=== PATIENT | female | born 1930 | race Caucasian/White ===

== ENCOUNTER 2017-03-25 11:34 | Emergency (ER) | payer MEDICARE, BC ==
[2017-03-25 11:58] VITALS: BP 161/71
--- NOTE | 2017-03-25 13:24 | UC ---
Abdominal Pain Female HPI - HPI Summary HPI Summary: Patient presents with complaints of 1-2 days of urinary urgency, frequency, and dysuria. She also reports generalized just not feeling well, and states she aches like a which. She denies any fever,chills, abdominal pain, flank pain associated with her concerns. - History of Current Complaint Hx Obtained From: Patient Onset/Duration: Gradual Onset, Lasting Days Timing: Constant Severity Initially: Mild Severity Currently: Moderate Pain Intensity: 6 Location: Suprapubic Radiates: No Character: Cramping Aggravating Factor(s): Other: - urination Alleviating Factor(s): Nothing Associated Signs and Symptoms: Positive: Urinary Symptoms - Risk Factors Ectopic Risk Factor: Negative Ovarian Torsion Risk Factor: Negative <Elidia Bowen - Last Filed: 03/25/17 13:25> <Thania Siddiqi - Last Filed: 03/25/17 13:58> - History of Current Complaint Chief Complaint: UCGU Stated Complaint: FREQUENT URINATION Time Seen by Provider: 03/25/17 13:12 Allergies/Adverse Reactions: Allergies Allergy/AdvReac Type Severity Reaction Status Date / Time MS NSAIDs [NSAIDs] Allergy Severe Bleeding Verified 03/25/17 11:54 PMH/Surg Hx/FS Hx/Imm Hx Previously Healthy: Yes Endocrine History: Dyslipidemia Cardiovascular History: Hypertension GI/ History: Gastroesophageal Reflux - Surgical History Surgical History: Yes Surgery Procedure, Year, and Place: HYSTERECTOMY,. 2 HIATAL HERNIA OPERATIONS- [facility] – [place], [place]. BLADDER SCRAPING,. laparoscopy right knee- [facility] – [place] - Family History Known Family History: Positive: Cardiac Disease - Social History Occupation: Retired Lives: With Family Alcohol Use: None Substance Use Type: None Smoking Status (MU): Former Smoker Type: Cigarettes Amount Used/How Often: 1 PACK PER WEEK Have You Smoked in the Last Year: No When Did the Patient Quit Smoking/Using Tobacco: 45 YEARS AGO - Immunization History Most Recent Influenza Vaccination: unknown Most Recent Tetanus Shot: Unknown Most Recent Pneumonia Vaccination: Never <Elidia Bowen - Last Filed: 03/25/17 13:25> Review of Systems Constitutional: Fatigue Skin: Negative Eyes: Negative ENT: Negative Respiratory: Negative Cardiovascular: Negative Gastrointestinal: Negative Genitourinary: Frequency, Urgency Motor: Negative Neurovascular: Negative Musculoskeletal: Negative Neurological: Negative Psychological: Negative Is Patient Immunocompromised?: No All Other Systems Reviewed And Are Negative: Yes <Elidia Bowen - Last Filed: 03/25/17 13:25> Physical Exam Triage Information Reviewed: Yes Appearance: Well-Appearing Vital Signs: Initial Vital Signs Temp 98 F 03/25/17 11:56 Pulse 66 03/25/17 11:56 Resp 20 03/25/17 11:56 BP 161/71 03/25/17 11:56 Pulse Ox 99 03/25/17 11:56 Vital Signs Reviewed: Yes Eye Exam: Normal ENT Exam: Normal Neck exam: Normal Neck: Positive: 1 Respiratory Exam: Normal Cardiovascular Exam: Normal Abdominal Exam: Normal Musculoskeletal Exam: Normal Neurological Exam: Normal Psychological Exam: Normal Skin Exam: Normal <Elidia Bowen - Last Filed: 03/25/17 13:25> Vital Signs: Initial Vital Signs Temp 98 F 03/25/17 11:56 Pulse 66 03/25/17 11:56 Resp 20 03/25/17 11:56 BP 161/71 03/25/17 11:56 Pulse Ox 99 03/25/17 11:56 <Thania Siddiqi - Last Filed: 03/25/17 13:58> Abd Pain Female Course/Dx - Course Course Of Treatment: UTI (simple) (revised version): This is a very pleasant patient who presents with signs or symptoms consistent with a UTI. Pt is afebrile, nontoxic appearing, and has a very benign abdominal exam. I will discharge them with an antibiotic to treat the most likley bacteria that would cause a UTI. Based on the history and/or exam, there is no significant evidence for toxicity, shock, sepsis, acute appendicitis, PID, ovarian torsion, TSS, sexual assault, bowel obstruction, as a cause for their symptoms, or an disease process requiring other immediate surgical, or medical inteventins at this time. with the abscence of a fever, CVA tenderness and/or vomiitng, I think this infection is lower urinary tract, not pyelonephritis. They are well appearing, normal vital signs, and stable for outpatient treatment at this time. Pain management and follow-up plan were discussed with the patient. They verbalized comprehension that if they are not imrpoving as expected or if other new symtpoms or signs of concern develop, other etiolgoies or diagnoses may need to be considered requiring other tests, treatmetns, consulations, and/or admission. STDs have been considered but felt to be less llikley than simple UTI at this time. The diagnoses, plan, expected course, follow-up, and return precautions were discussed and all quesions were answerd. - Differential Dx/Diagnosis Differential Diagnosis: Urinary Tract Infection Provider Diagnoses: uti <Elidia Bowen - Last Filed: 03/25/17 13:25> Discharge <Elidia Bowen - Last Filed: 03/25/17 13:25> <Thania Siddiqi - Last Filed: 03/25/17 13:58> - Discharge Plan Condition: Stable Disposition: HOME Prescriptions: Cephalexin CAP* [Keflex CAP*] 500 mg PO QID #14 cap Phenazopyridine 200 mg (NF) [Pyridium 200 MG tab *] 200 mg PO TID #6 tab Patient Education Materials: Urinary Tract Infection in Women (DC) Referrals: No Primary Care Phys,NOPCP [Primary Care Provider] - Attestation Statement User Type: Provider - I was available for consult. This patient was seen by the MAMI. The patient was not presented to, seen by, or examined by me. Chris <Thania Siddiqi - Last Filed: 03/25/17 13:58>
--- NOTE | 2017-03-27 17:36 | UC ---
- Progress Note Progress Note: call patient to assure her sx have resolved as she doesnt not have bacterial growth in urine-should she still have sx have her seek follow up care
== END 2017-03-25 13:27 | disposition home or self-care (01) ==
LOC: UCEAST 11:34
DX: N39.0 Urinary tract infection, site not specified (principal); F17.210 Nicotine dependence, cigarettes, uncomplicated; E78.5 Hyperlipidemia, unspecified; I10 Essential (primary) hypertension; K21.9 Gastro-esophageal reflux disease without esophagitis
CPT/HCPCS: 81003; 87086; 99212; G0463

== ENCOUNTER 2017-04-19 11:42 | Emergency (ER) | payer MEDICARE, BC ==
[2017-04-19 13:43] VITALS: BP 152/82
--- NOTE | 2017-04-19 13:47 | UC ---
Ear Complaint HPI - HPI Summary HPI Summary: Pt presents with left throat pain that began yesterday. She tells me that last night she started with left ear/throat pain. She is unable to describe if this pain is originating in her throat or her ear. She says her ear hurts, but then point to the left throat/neck when asked where the pain is. Has not taken anything for this. Hurts to swallow. She is unable to describe the pain, but keeps repeating that it "hurts" Denies fever, chills, SOB, chest pain, dizziness , headache, or recent illness. - History of Current Complaint Chief Complaint: UCEar Stated Complaint: EAR COMPLAINT Time Seen by Provider: 04/19/17 13:47 Hx Obtained From: Patient Onset/Duration: Sudden Onset Severity Initially: Mild Severity Currently: Mild Pain Intensity: 3 Pain Scale Used: 0-10 Numeric - Allergies/Home Medications Allergies/Adverse Reactions: Allergies Allergy/AdvReac Type Severity Reaction Status Date / Time NSAIDS (Non-Steroidal Allergy Bleeding Verified 04/19/17 13:44 Anti-Inflamma PMH/Surg Hx/FS Hx/Imm Hx Previously Healthy: Yes Endocrine History: Dyslipidemia Cardiovascular History: Hypertension - Surgical History Surgical History: Yes Surgery Procedure, Year, and Place: HYSTERECTOMY,. 2 HIATAL HERNIA OPERATIONS- [facility] – [place], [place]. BLADDER SCRAPING,. laparoscopy right knee- [facility] – [place] - Family History Known Family History: Positive: Cardiac Disease - Social History Occupation: Retired Lives: With Family Alcohol Use: Occasionally Substance Use Type: None Smoking Status (MU): Former Smoker Type: Cigarettes Amount Used/How Often: 1 PACK PER WEEK Have You Smoked in the Last Year: No When Did the Patient Quit Smoking/Using Tobacco: 45 YEARS AGO - Immunization History Most Recent Influenza Vaccination: unknown Most Recent Tetanus Shot: Unknown Most Recent Pneumonia Vaccination: Never Review of Systems Constitutional: Negative Skin: Negative Eyes: Negative ENT: Sore Throat Respiratory: Negative Cardiovascular: Negative Gastrointestinal: Negative Neurological: Negative Psychological: Negative All Other Systems Reviewed And Are Negative: Yes Physical Exam Triage Information Reviewed: Yes Appearance: Well-Appearing, No Pain Distress, Well-Nourished Vital Signs: Initial Vital Signs Temp 99.9 F 04/19/17 13:39 Pulse 85 04/19/17 13:39 Resp 18 04/19/17 13:39 BP 152/82 04/19/17 13:39 Pulse Ox 100 04/19/17 13:39 Vital Signs Reviewed: Yes Eyes: Positive: Conjunctiva Clear. Negative: Conjunctiva Inflamed, Discharge ENT: Positive: Hearing grossly normal, Pharynx normal, TMs normal, Uvula midline. Negative: Pharyngeal erythema, Nasal congestion, Nasal drainage, TM bulging, TM dull, TM red, Tonsillar swelling, Tonsillar exudate, Muffled voice, Hoarse voice, Dental tenderness Dental: Negative: Gross Decay/Caries @, Dental Fracture @, Abscess @ Neck: Positive: Supple, No Lymphadenopathy, Other: - TTP over left tonsillar Respiratory: Positive: Lungs clear, Normal breath sounds, No respiratory distress, No accessory muscle use Cardiovascular: Positive: RRR, No Murmur, Pulses Normal Neurological: Positive: Alert Psychological: Positive: Age Appropriate Behavior Skin: Negative: rashes Ear Complaint Course/Dx - Course Course Of Treatment: Exam is WNL today except for some tenderness on the left tonsillar area. I made her aware that this could be the start of shingles and the lesions have no yet appeared - to monitor the area for this and f/u if occur. In the meantime, I will try her with magic mouthwash for her discomfort and have her f/u with her PCP - Differential Dx/Diagnosis Provider Diagnoses: Throat pain Discharge - Discharge Plan Condition: Stable Disposition: HOME Prescriptions: Magic M W2 Vincent/Maal/Nyst/Lido* 5 ml SWISH SWAL TID #105 ml Patient Education Materials: Pharyngitis (ED) Referrals: Adrianne Bernard NP [Primary Care Provider] - Additional Instructions: If you develop a fever, shortness of breath, chest pain, new or worsening symptoms - please call your PCP or go to the ED. Your blood pressure was high at todays visit. Please see your primary provider within 4 weeks for recheck and re-evaluation.
== END 2017-04-19 14:45 | disposition home or self-care (01) ==
LOC: UCEAST 11:42
DX: R07.0 Pain in throat (principal); H92.02 Otalgia, left ear; E78.5 Hyperlipidemia, unspecified; I10 Essential (primary) hypertension; Z88.6 Allergy status to analgesic agent; Z87.891 Personal history of nicotine dependence
CPT/HCPCS: 87502; 99212; G0463

== ENCOUNTER 2017-08-21 10:23 | Emergency (ER) | payer MEDICARE, BC ==
[2017-08-21 10:35] VITALS: BP 149/66
--- NOTE | 2017-08-21 10:51 | UC ---
Back Pain HPI - HPI Summary HPI Summary: 86 yo female presents with right hip and lower back pain that began yesterday. She tells me that she was doing a lot of walking yesterday while shopping - later in the day noticed her right hip and lower back start to get painful. Feels slightly better this morning, but still painful. She applied "pain patches " with mild relief. Denies fever, chills, flank pain, dysuria, numbness, or tingling. - History of Current Complaint Chief Complaint: UCLowerExtremity Stated Complaint: HIP PAIN Time Seen by Provider: 08/21/17 10:39 Hx Obtained From: Patient Onset/Duration: Sudden Onset Timing: Constant Severity Initially: Severe Severity Currently: Severe Pain Intensity: 9 Pain Scale Used: 0-10 Numeric - Allergies/Home Medications Allergies/Adverse Reactions: Allergies Allergy/AdvReac Type Severity Reaction Status Date / Time NSAIDS (Non-Steroidal Allergy Bleeding Verified 08/21/17 10:35 Anti-Inflamma Home Medications: Home Medications Albuterol Sulfate [Ventolin Hfa] 08/21/17 [History] PMH/Surg Hx/FS Hx/Imm Hx Endocrine History: Dyslipidemia Cardiovascular History: Hypertension - Surgical History Surgical History: Yes Surgery Procedure, Year, and Place: HYSTERECTOMY,. 2 HIATAL HERNIA OPERATIONS- [facility], [place]. BLADDER SCRAPING,. [place]- [facility] [place] - Family History Known Family History: Positive: Cardiac Disease - Social History Occupation: Retired Alcohol Use: Occasionally Substance Use Type: None Smoking Status (MU): Former Smoker Type: Cigarettes Amount Used/How Often: 1 PACK PER WEEK Have You Smoked in the Last Year: No When Did the Patient Quit Smoking/Using Tobacco: 45 YEARS AGO - Immunization History Most Recent Influenza Vaccination: unknown Most Recent Tetanus Shot: Unknown Most Recent Pneumonia Vaccination: Never Review of Systems Constitutional: Negative Skin: Negative Respiratory: Negative Cardiovascular: Negative Neurovascular: Negative Musculoskeletal: Other: - Right hip and lower back pain Neurological: Negative Psychological: Negative All Other Systems Reviewed And Are Negative: Yes Physical Exam - Summary Physical Exam Summary: GENERAL: NAD. WDWN. No pain distress. SKIN: No rashes, sores, lesions, or open wounds. NECK: Supple. FROM. Nontender. No lymphadenopathy. CHEST: No accessory muscle use. Breathing comfortably and in no distress. CV: Pulses intact. Brisk cap refill. MSK: TTP over right SI. Positive SLR on right. Positive PAYTON for back pain on right Strength 5/5 B/L LEs including dorsiflexion and plantar flexion. FROM B/L LEs. No edema. NEURO: Alert. CN II-XII grossly intact. Sensations intact B/L LEs L3-S1. PSYCH: Age appropriate behavior. Triage Information Reviewed: Yes Vital Signs: Initial Vital Signs Temp 98 F 08/21/17 10:32 Pulse 77 08/21/17 10:32 Resp 16 08/21/17 10:32 BP 149/66 08/21/17 10:32 Pulse Ox 98 08/21/17 10:32 Back Pain Course/Dx - Course Course Of Treatment: XR: IMPRESSION: NO ACUTE BONY FINDINGS. Pt did not want anything for her pain or a referral today. She will take tylenol and wishes to see her Chiropractor. Follow up prn - Differential Dx/Diagnosis Provider Diagnoses: Sciatica Discharge - Sign-Out/Discharge Documenting (check all that apply): Discharge/Admit/Transfer - Discharge Plan Condition: Stable Disposition: HOME Patient Education Materials: Sciatica (ED) Referrals: Apolinar Gamble MD [Primary Care Provider] - Additional Instructions: If you develop a fever, shortness of breath, chest pain, new or worsening symptoms - please call your PCP or go to the ED. Your blood pressure was mildly elevated at todays visit. Please see your primary provider within 4 weeks for recheck and re-evaluation. 1) May try tylenol for your pain and your Chiropractor may be able to help with your pain as well. Please call us if your pain does not improve. - Billing Disposition and Condition Condition: STABLE Disposition: Home
--- NOTE | 2017-08-21 11:27 | RAD ---
INDICATION: Right hip pain COMPARISON: None TECHNIQUE: An AP view of the pelvis and AP views of the hip in neutral and abducted position were obtained FINDINGS: Bones: There are no acute bony findings. Joint spaces: The hips articulate normally. The joint spaces are preserved. SI joints/symphysis: The SI joints and symphysis are intact. Other: None IMPRESSION: NO ACUTE BONY FINDINGS
== END 2017-08-21 11:23 | disposition home or self-care (01) ==
LOC: UCEAST 10:23
DX: M54.31 Sciatica, right side (principal)
CPT/HCPCS: 99211; G0463

== ENCOUNTER 2017-10-09 08:33 | Inpatient (IN) | payer MEDICARE, BC ==
[2017-10-09 09:20] LABS: Hematocrit 39 % (35-47); Mean Corpuscular HGB Conc 34 g/dl (31-36); Mean Corpuscular Hemoglobin 31 pg (27-31); Mean Corpuscular Volume 94 fL (80-97); Mean Platelet Volume 7.9 um3 (7.4-10.4); Platelet Count 223 10^3/ul (150-450); Red Blood Count 4.16 10^6/ul (4.00-5.40); Red Cell Distribution Width 13 % (10.5-15); White Blood Count 13.6 10^3/ul (3.5-10.8)
--- NOTE | 2017-10-09 09:20 | ED ---
Shortness of Breath - HPI Summary HPI Summary: This is scribe Teodoro Garcia documenting for attending Félix Roberson MD. A 87 y/o female accompanied by her presents to ED c/o acute SOB. In the ED room, the patient has a pulse of 91 BPM, O2 saturation of 97% and blood pressure of 180/83. Currently the patient still has SOB, cough, chills and generalized weakness ("I just want to curl up"). As per triage, "Pt c/o increased shortness of breath, tremors, and chills". According to the patient, she has been experiencing acute SOB since 0400 this morning. She stated that she has a breathing problem (general SOB), however, this morning the SOB she experienced is nothing like her normal breathing trouble, "nothing like this". Additional symptoms include tremors (shaking), cough and chills. She stated that yesterday, she was perfectly find completing her routine everyday activities. As per , the patient was very unsteady this morning. It was noted that the patient was never officially diagnosed with SOB, as the reasons are still unknown. Patient was put on an inhaler by her previous PCP. Current PCP is Dr. Gamble with next appointment in November. Patient is allergic to NSAIDS (bleeds). I, Dr. Roberson, personally performed the services described in this documentation as scribed in my presence and it is both accurate and complete. - History of Current Complaint Chief Complaint: EDShortnessOfBreath Hx Obtained From: Patient Onset/Duration: Sudden Onset, Lasting Hours, Still Present Timing: Constant Dyspnea At: Rest Aggrevating Factors: Nothing Alleviating Factors: Nothing Associated Signs & Symptoms: Cough (Nonproductive), Chills - Allergy/Home Medications Allergies/Adverse Reactions: Allergies Allergy/AdvReac Type Severity Reaction Status Date / Time NSAIDS (Non-Steroidal Allergy Bleeding Verified 10/09/17 08:48 Anti-Inflamma PMH/Surg Hx/FS Hx/Imm Hx Cardiovascular History: Reports: Hx Embolism, Hx Hypertension - ON MEDICATION FOR, Other Cardiovascular Problems/Disorders - HISTORY OF SVT Denies: Hx Pacemaker/ICD Respiratory History: Reports: 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 2 HIATAL HERNIA OPERATIONS- [facility] – [place], [place]. BLADDER SCRAPING,. laparoscopy right knee- [facility] – [place] Hx Anesthesia Reactions: Yes - 1-2 DAYS AFTER SURGERY-VERY TIRED AND HAS A BLOOD CLOT Infectious Disease History: No Infectious Disease History: Denies: Hx Clostridium Difficile, Hx Hepatitis, Hx Human Immunodeficiency Virus (HIV), Hx of Known/Suspected MRSA, Hx Shingles, Hx Tuberculosis, Hx Known/ Suspected VRE, Hx Known/Suspected VRSA, History Other Infectious Disease, Traveled Outside the [place] in Last 30 Days - Family History Known Family History: Positive: Cardiac Disease - Social History Alcohol Use: Occasionally Substance Use Type: Reports: None Smoking Status (MU): Former Smoker Type: Cigarettes Amount Used/How Often: 1 PACK PER WEEK Have You Smoked in the Last Year: No Review of Systems Positive: Chills, Other Positive: Shortness Of Breath, Cough Neurological: Other - POSITIVE: Tremors Positive: Weakness - Generalized All Other Systems Reviewed And Are Negative: Yes Physical Exam - Summary Physical Exam Summary: Appearance: The patient is well-nourished in no acute distress and in no acute pain. Skin: The skin is warm and dry and skin color reflects adequate perfusion. HEENT: The head is normocephalic and atraumatic. The pupils are equal and reactive. The conjunctivae are clear and without drainage. Nares are patent and without drainage. Mouth reveals dry mucous membranes and the throat is without erythema and exudate. The external ears are intact. The ear canals are patent and without drainage. The tympanic membranes are intact. Neck: The neck is supple with full range of motion and non-tender. There are no carotid bruits. There is no neck vein distension. Respiratory: Chest is non-tender. Crackles on the left side. Cardiovascular: Tachycardic. There is no murmur or rub auscultated. There is no peripheral edema and pulses are symmetrical and equal. Abdomen: The abdomen is soft and non-tender. There are normal bowel sounds heard in all four quadrants and there is no organomegaly palpated. Musculoskeletal: There is no back tenderness noted. Extremities are non-tender with full range of motion. There is good capillary refill. There is no peripheral edema or calf tenderness elicited. Neurological: Patient is alert and oriented to person, place and time. The patient has symmetrical motor strength in all four extremities. Cranial nerves are grossly intact. Deep tendon reflexes are symmetrical and equal in all four extremities. Psychiatric: The patient has an appropriate affect and does not exhibit any anxiety or depression. Triage Information Reviewed: Yes Vital Signs On Initial Exam: Initial Vitals Temp Pulse Resp BP Pulse Ox 100.1 F 97 18 166/101 92 10/09/17 08:36 10/09/17 08:36 10/09/17 08:36 10/09/17 08:36 10/09/17 08:36 Vital Signs Reviewed: Yes Diagnostics - Vital Signs Vital Signs Temp Pulse Resp BP Pulse Ox 10/09/17 08:46 97 180/83 97 10/09/17 08:36 100.1 F 97 18 166/101 92 - Laboratory Result Diagrams: 10/09/17 09:09 10/09/17 09:09 Lab Statement: Any lab studies that have been ordered have been reviewed, and results considered in the medical decision making process. - Radiology CXR Radiology Interpretation Completed By: Radiologist - 1. THERE HAS BEEN INTERVAL DEVELOPMENT OF A 2.3 CM NODULE OF THE RIGHT PERIHILAR LUNG. RECOMMEND CONSIDERATION OF CORRELATION WITH CONTRAST AND CT OF THE CHEST. 2. EMPHYSEMA. 3. HIATAL HERNIA. ED physician reviewed this radiology report. - CT CTA CHEST/THORAX CT Interpretation Completed By: Radiologist - 1. No CT evidence of acute pulmonary embolic disease. 2. Right middle and upper lobe infiltrate with consolidation consistent with acute pneumonitis. Suggest follow-up. 3. Underlying emphysema. 4. Large hiatal hernia. ED physician reviewed this radiology report. - EKG 0856 Cardiac Rate: NL - 89 BPM EKG Rhythm: Sinus Rhythm ST Segment: Non-Specific Ectopy: PACs EKG Interpretation: Left anterior fascicular block Course/Dx - Course Course Of Treatment: Ms. Molina presented to the emergency department complaining of feeling poorly and having a cough for several days. She feels worse today than she has. She had a low-grade temperature of 100.1 on arrival and was not tachycardic. Labs were obtained and revealed a leukocytosis of 14, 000. A chest x-ray showed some right perihilar consolidation. She was given a liter of fluid and 750 mg of IV Levaquin. The radiologist recommended CT scan and a CTA was obtained which confirmed the diagnosis of pneumonia. She did not meet septic criteria. The hospitalist were contacted for admission - Diagnoses Provider Diagnoses: Pneumonia - Physician Notifications Discussed Care of Patient With: Arnol Kirk Time Discussed With Above Provider: 11:59 Instructed by Provider To: Other - Accepts patient for admission. Discharge - Sign-Out/Discharge Documenting (check all that apply): Patient Departure - ADMIT - Discharge Plan Condition: Stable Disposition: ADMITTED TO [facility] Referrals: Apolinar Gamble MD [Primary Care Provider] - - Billing Disposition and Condition Condition: STABLE Disposition: Admitted to [facility]
[2017-10-09 09:30] LABS: INR 0.9 (0.77-1.02)
[2017-10-09 09:39] LABS: EGFR Non-African American 40.5 (>60)
--- NOTE | 2017-10-09 09:54 | RAD ---
HISTORY: SOB COMPARISONS: October 06, 2015 VIEWS: 4: Frontal dual-energy and lateral views of the chest. FINDINGS: CARDIOMEDIASTINAL SILHOUETTE: The cardiomediastinal silhouette is normal. ADRIENNE: The adrienne are normal. PLEURA: The costophrenic angles are sharp. No pleural abnormalities are noted. LUNG PARENCHYMA: There is hyperinflation with flattening of the diaphragm and expansion of the AP diameter of the chest. There has been interval development of a 2.3 cm nodule of the right perihilar region. ABDOMEN: There is a moderate hiatal hernia. BONES AND SOFT TISSUES: No bone or soft tissue abnormalities are noted. OTHER: None. IMPRESSION: 1. THERE HAS BEEN INTERVAL DEVELOPMENT OF A 2.3 CM NODULE OF THE RIGHT PERIHILAR LUNG. RECOMMEND CONSIDERATION OF CORRELATION WITH CONTRAST AND CT OF THE CHEST. 2. EMPHYSEMA. 3. HIATAL HERNIA.
[2017-10-09 10:01] LABS: ABS Basophils 0.1 10^3/ul (0-0.2); ABS Eosinophils 0 10^3/ul (0-0.6); ABS Lymphocytes 0.5 10^3/ul (1.0-4.8); ABS Monocytes 0.5 10^3/ul (0-0.8); ABS Neutrophils 12.5 10^3/ul (1.5-7.7); ABS Nucleated RBC 0 10^3/ul; Eosinophil % 0.1 % (0-6); Lymphocyte % 3.7 % (25-47); Nucleated Red Blood Cells % 0
[2017-10-09] MEDS ORDERED: NS 0.9% 1000 ML* 1,000 ML IV ONE (10:54)
[2017-10-09] MEDS ORDERED: Levofloxacin 750 MG IVPREMIX(* 750 MG/150 ML BAG IVPB ONE (10:55)
[2017-10-09] MEDS ORDERED: Iodixanol* (CONTRAST) 320 MG/ML 100 ML SDV IV ONE (11:32)
--- NOTE | 2017-10-09 11:53 | RAD ---
INDICATION: Chest pain. Short of breath. Evaluate for pulmonary embolus. COMPARISON: Chest x-ray same date TECHNIQUE: Axial source images were obtained from the thoracic inlet to the hemidiaphragms following administration of [address] angiographic technique was utilized. Coronal and sagittal reconstructed images were acquired. CHEST FINDINGS: Neck/thyroid: The visualized neck to include the thyroid appear normal. Chest wall: There are no acute abnormalities of the bony thorax or chest wall. There is osteopenia with multilevel degenerative spurring. There is kyphosis There is no supraclavicular, infraclavicular, or axillary lymphadenopathy. Lungs : There are infiltrates with consolidative changes in the right middle lobe and to a lesser degree in the right upper lobe. This accounts for the chest x-ray findings. There are underlying emphysematous changes. There are no endobronchial lesions. Cardiomediastinal structures: There is no CT evidence of acute pulmonary embolic disease. The heart is normal in size. There is no pericardial effusion. There is no evidence of aortic aneurysm or dissection. There are advanced atherosclerotic changes. There is uncoiling of the thoracic aorta There is no mediastinal or hilar adenopathy. The esophagus appears normal. Pleura : There are no pleural-based masses or effusions. Other: There is a large hiatal hernia.. There are splenic granulomas IMPRESSION: 1. No CT evidence of acute pulmonary embolic disease 2. Right middle and upper lobe infiltrate with consolidation consistent with acute pneumonitis. Suggest follow-up. 3. Underlying emphysema. 4. Large hiatal hernia
[2017-10-09] MEDS ORDERED: Albuterol 2.5 MG/3 ML NEB.SOL* (0.083%) INH PRN (12:29)
[2017-10-09] MEDS ORDERED: Acetaminophen TAB* 325 MG PO PRN (12:29)
[2017-10-09] MEDS: Aspirin 81 mg CHEW TAB* 81 MG TAB.CHEW PO SCH (14:27)
[2017-10-09] MEDS: Heparin VIAL(*) 5000 UNITS/ML VIAL (FIVE THOUSAND) SUBCUT SCH ×2 (14:28→20:42)
[2017-10-09] MEDS: NS 0.9% 1000 ML* 1,000 ML IV SCH (14:28)
--- NOTE | 2017-10-09 17:23 | ECHO ---
Patient: KAYODE WEI [facility] Rec#: [id number] : 1930 Date: 10/09/2017 Age: 87y Height: 144.78 cm / 57.0 in Weight: 63.5 kg / 140.0 lbs Sex: F BSA: 1.55 Room#: [facility] Admit Date#: 10/09/2017 Type: Inpatient Referring: Arnol Kirk NP Reading: Marcus Conner DO Supervisor Lead Refinery: Alice Oswald RDCS CC: Apolinar Gamble MD Transthoracic Echocardiogram Indication: Abnormal EKG BP: 113/46 HR: 78 Rhythm: NSR Findings History: Pulmonary embolism, HTN, SVT, TIA, hiatal hernia, former smoker. Technical Comments: The study quality is good. Completed at 1700. Left Ventricle: The left ventricular chamber size is normal. Mild to moderate concentric left ventricular hypertrophy is observed. Global left ventricular wall motion and contractility are within normal limits. The left ventricle appears hyperdynamic. The estimated ejection fraction is greater than 65%. Abnormal left ventricular diastolic function is observed. Left Atrium: The left atrium is moderately dilated. Right Ventricle: The right ventricular chamber size and systolic function are within normal limits. Right Atrium: The right atrium is mild to moderately dilated. Aortic Valve: The aortic valve is trileaflet. The aortic valve leaflets are mildly thickened. There is no evidence of aortic regurgitation. There is no evidence of aortic stenosis. Mitral Valve: There is mitral annular calcification. The mitral valve leaflets are mildly thickened. There is a trace of mitral regurgitation. There is no evidence of mitral stenosis. Tricuspid Valve: The tricuspid valve leaflets are normal. There is mild tricuspid regurgitation. The right ventricular systolic pressure is estimated at 41 mmHg. There is evidence of mild pulmonary hypertension. There is no tricuspid stenosis. Pulmonic Valve: The pulmonic valve appears normal. There is trace to mild pulmonic regurgitation. There is no pulmonic stenosis. Pericardium: There is no significant pericardial effusion. Aorta: There is mild dilatation of the ascending aorta. There is no dilatation of the aortic arch. The aortic root is normal in size. Pulmonary Artery: The main pulmonary artery is not well visualized. Venous: The inferior vena cava appears normal in size. There is a greater than 50% respiratory change in the inferior vena cava dimension. Conclusions The left ventricular chamber size is normal. Mild to moderate concentric left ventricular hypertrophy is observed. Global left ventricular wall motion and contractility are within normal limits. The left ventricle appears hyperdynamic. The estimated ejection fraction is greater than 70% The left atrium is moderately dilated. The right ventricular chamber size and systolic function are within normal limits. There is evidence of mild pulmonary hypertension. There is mild tricuspid regurgitation. Compared to prior study from 02/2014, LVEF is now hyperdynamic (was normal previously) Measurements Name Value Normal Range RVIDd (AP) 2D 3.2 cm (0.9 - 2.6) RVDdMajor (2D) 4.8 cm (2.2 - 4.4) RAd ISD 4CH 5.1 cm (3.4 - 4.9) RA (A4C)W 4.5 cm (2.9 - 4.6) IVSd (2D) 1.3 cm (0.6 - 1) LVPWd (2D) 1.3 cm (0.6 - 1) LVIDd (2D) 3.8 cm (3.6 - 5.4) LVIDs (2D) 1.8 cm - LV FS (2D) 53 % (25 - 45) EF Teichholz (2D) 8 % - Aortic Annulus 1.9 cm (1.4 - 2.6) Ao root diameter (2D) 3.4 cm (2.1 - 3.5) Ascending Ao 3.5 cm (2.1 - 3.4) Aortic arch 2.2 cm (1.8 - 3.4) LA dimension (AP) 2D 3.8 cm (2.3 - 3.8) LAd ISD 4CH 5.2 cm (2.9 - 5.3) LA ISD 4CH W 4.3 cm (2.5 - 4.5) Name Value Normal Range LA ESV SP 4CH (A/L) 59 ml - LA ESV SP 2CH (A/L) 72 ml - LA ESV BP (A/L) 66 ml - LA ESV BP (A/L) index 43 ml/m2 - LA ESV SP 4CH (MOD) 55 ml - LA ESV SP 2CH (MOD) 68 ml - Name Value Normal Range MV E-wave Vmax 0.77 m/sec - MV deceleration time 185.2 msec - MV A-wave Vmax 0.92 m/sec - MV E:A ratio 0.84 ratio - LV septal e' Vmax 0.06 m/sec - LV lateral e' Vmax 0.08 m/sec - LV E:e' septal ratio 12.8 ratio - LV E:e' lateral ratio 9.63 ratio - Name Value Normal Range AV Vmax 1.6 m/sec - AV VTI 29.9 cm - AV peak gradient 9.69 mmHg - AV mean gradient 4.8 mmHg - LVOT Vmax 1.2 m/sec - LVOT VTI 25.79 cm - LVOT peak gradient 6.24 mmHg - LVOT mean gradient 3.09 mmHg - CA Vmax 0.9 m/sec - Name Value Normal Range TR Vmax 3.1 m/sec - TR peak gradient 38 mmHg - RAP 3 mmHg - RVSP 41 mmHg - IVC diameter 1.5 cm - Name Value Normal Range PV Vmax 1 m/sec - PV peak gradient 4.68 mmHg - AZ end-diastolic Vmax 1.06 m/sec -
--- NOTE | 2017-10-09 19:43 | HP ---
CC: Dr. Apolinar Gamble * HISTORY AND PHYSICAL: DATE OF ADMISSION: 10/09/17. PRIMARY CARE PROVIDER: Apolinar Gamble MD. ATTENDING PHYSICIAN WHILE IN THE HOSPITAL: Dr. Petra López MD * (report dictated by Arnol Kirk NP). CHIEF COMPLAINT: 1. Shortness of breath. 2. Cough. 3. Chills. HISTORY OF PRESENT ILLNESS: Mrs. Molina is an 87-year-old female patient who carries a history of hypertension, osteoarthritis, history of TIA and hiatal hernia. She is coming into the ER today saying that over the last week she had progressive worsening shortness of breath. She just has not been feeling well. She has had a cough that was productive this morning. She said she woke up this morning. She just felt very fatigued, very tried. She could not get out of bed. She was shaking. She felt hot. She was talking to her son, Winston and he felt that the patient should come in to the ER, so she came into the ER. She was evaluated. It was noted that she did have what appeared to be pneumonia. She denies having any chest pain. She just says that she is having a hard time getting a deep breath particularly with exertion. Denies any orthopnea. Denies any nausea, vomiting, or diarrhea. Denies having any abdominal discomfort and no recent sick contacts. PAST MEDICAL HISTORY: Significant for: 1. Hypertension. 2. Arthritis. 3. Hiatal hernia. 4. History of TIA. PAST SURGICAL HISTORY: Significant for: 1. Inguinal hernia repair. 2. Hiatal hernia repair. 3. Hysterectomy. 4. Knee arthroscopy. MEDICATIONS: Her home meds according to the list that she provided includes: 1. Multivitamins 1 tablet daily. 2. Toprol-XL 25 mg daily. 3. Menthol pain relieving patch 5% topical q.i.d. as needed. 4. Lisinopril 20 mg daily. 5. Hydrochlorothiazide 12.5 mg daily. 6. Vitamin D3 5000 units p.o. daily. 7. Albuterol 1 puff inhaled as directed. ALLERGIES TO MEDICATIONS: Include NSAIDS. FAMILY HISTORY: She said her mother of old age at the age of 102. Father had a history of CVA, colon cancer, and heart disease. SOCIAL HISTORY: She is a former smoker. She quit over 50 years ago. She does not drink alcohol. Surrogate decision maker is her son and her children. REVIEW OF SYSTEMS: There was a documented fever here today and she did admit to having chills. She denies having any significant weight change. She denied having any double vision. There is no ear discharge. She denies having any rhinorrhea. There was no sore throat. There is no thyroid enlargement. She denies having any chest pain. She does admit to shortness of breath. She admits to dyspnea on exertion. She denies having any abdominal pain. No nausea , no vomiting, no dysuria, no frequency, no seizure, no loss of consciousness, no pruritus and no skin ulcerations. Review of 14 systems was completed, all others negative. PHYSICAL EXAMINATION GENERAL: At this time, Mrs. Molina is an 87-year-old female patient. She is sitting in the ED stretcher. She does not appear to be in any acute distress. VITAL SIGNS: Reveals blood pressure 125/53, pulse is 80, respirations when I counted number 20, and O2 saturation in the room is 94%, it has been as low as 89%, her temperature was 100.1. HEENT: Head, atraumatic and normocephalic. Eyes: EOMs are intact. Sclerae anicteric and not pale. Throat: Oral mucosa appears to be moist. No oropharyngeal erythema. NECK: Supple. LUNGS: She had crackles noted in her right lower lobe. She had equal diaphragmatic expansion. No wheezing or rales. HEART: Sounds S1, S2. She had a regular rate and rhythm. No murmurs, rubs, or gallops. ABDOMEN: Soft, flat, nontender. Bowel sounds were present. EXTREMITIES: Pulses were 2+ throughout. She is moving all 4 extremities with 5 /5 strength. NEUROLOGICAL: The patient is awake, alert. She is oriented x3. Her tongue is midline. Mobile Equipment Operator are equal. She had no gross focal deficits. SKIN: Grossly intact. DIAGNOSTIC STUDIES/LAB DATA: Her labs today revealed a WBC of 13.6, RBC of 4.16, hemoglobin of 13.0, hematocrit of 39, platelet count of 223. INR of 0.90. Her sodium was 139, potassium was 3.8, chloride of 102, bicarb 28, BUN 29 , creatinine of 1.25. She is slightly up from the baseline of 1.1. Her lactic was 1.5, calcium is 9.2, total bilirubin is 0.7, AST 12, ALT 9, alk phos 60, troponin 0.02, CRP of 3.81, BNP of 142, albumin of 3.8. She had a chest x-ray obtained today which showed impression there has been interval development of 2.3 cm nodule at the right perihilar lung. Recommend correlation with contrast. CT of chest emphysema, hiatal hernia, under my impression, my review of the film does look like a nodular possibly infiltrate in the right middle lobe. CT chest was obtained and it does show no CT evidence of PE, right middle and upper lobe infiltrates with consolidation consistent with acute pneumonitis. Suggest follow up underlying emphysema, large hiatal hernia. There is no mention of nodule. She did have an EKG obtained today, which does show normal sinus rhythm with a PAC also with a left anterior fascicular block. She did have a little bit of depression in V4, V5, and V6. The ST depression is now new compared to her previous EKG from 3 years ago. Old medical records were reviewed. ASSESSMENT AND PLAN: Mrs. Molina is an 87-year-old female patient coming into the ED today with complaints of shortness of breath, cough, not feeling well. On evaluation, found to have pneumonia. She will be admitted under inpatient status for: 1. Pneumonia. At this point, she does have signs of sepsis. She has again elevated white count. However, she was mildly tachypneic. She however was responded to fluid. She is not hypotensive. She is no longer tachypneic and she is not tachycardic. She did get 1 L. I would hold off on giving her any more fluid bolus. She was little cultured. I will go ahead and check the Legionella and Strep pneumo antigen. I will try to get the sputum culture if possible and we have placed her on antibiotics and she has had blood cultures obtained and her lactic was stable. I would continue with aggressive pulmonary toileting, p.r.n. nebs and we will continue to follow her closely. 2. EKG changes, again ST depression is probably demand ischemia from the acute underlying infections. She is not having chest pain. I will place her on telemetry. I will cycle her troponins and repeat the EKG in the morning. 3. Hypertension. Again, her blood pressure initially when she came in was quite high. However, it has now come down in the 120 systolic. I am going to hold her medications with the exception of the beta-ann. I will continue that with withhold parameters and we will reintroduce medications when able. 4. Acute on chronic kidney injury. Again, at this point, her baseline creatinine is 1.1, it is 1.2 today. It is probably little mild dehydration from the setting of infection and her not eating. I will send off a FeNa. I will hydrate her and we will repeat the BNP tomorrow. 5. Arthritis. P.r.n. Tylenol has been ordered. 6. History of hiatal hernia. Follow with her PCP. 7. History of transient ischemia attack. She is no longer taking an aspirin. I will get her back on a baby aspirin. I recommend that she goes on this because of her history. She can follow with her PCP. 8. DVT prophylaxis. I have placed her on heparin subcu. 9. Code status. She is a DNR. 10. Fluids, electrolytes, and nutrition. She can have regular diet. TIME SPENT: Time spent on the admission was 60 minutes, greater than half the time was spent [id number] with the patient obtaining my history and physical, other half time was spent going over the plan of care with the patient and implementing the plan of care. I did discuss the plan of care with my attending, Dr. López, she is in agreement. ARNOL KIRK NP [id number]/[facility] #: [id number] ADRIANE
[2017-10-10] MEDS: NS 0.9% 1000 ML* 1,000 ML IV SCH (03:19)
[2017-10-10] MEDS: Heparin VIAL(*) 5000 UNITS/ML VIAL (FIVE THOUSAND) SUBCUT SCH ×3 (05:30→21:08)
[2017-10-10 06:26] LABS: ABS Basophils 0 10^3/ul (0-0.2); ABS Eosinophils 0 10^3/ul (0-0.6); ABS Lymphocytes 1.3 10^3/ul (1.0-4.8); ABS Monocytes 0.6 10^3/ul (0-0.8); ABS Neutrophils 7.9 10^3/ul (1.5-7.7); ABS Nucleated RBC 0 10^3/ul; Eosinophil % 0.2 % (0-6); Hematocrit 33 % (35-47); Hemoglobin 11.3 g/dl (12.0-16.0); Lymphocyte % 12.8 % (25-47); Mean Corpuscular HGB Conc 34 g/dl (31-36); Mean Corpuscular Hemoglobin 32 pg (27-31); Mean Corpuscular Volume 93 fL (80-97); Mean Platelet Volume 7.6 um3 (7.4-10.4); Nucleated Red Blood Cells % 0; Platelet Count 196 10^3/ul (150-450); Red Blood Count 3.55 10^6/ul (4.00-5.40); Red Cell Distribution Width 13 % (10.5-15); White Blood Count 9.9 10^3/ul (3.5-10.8)
[2017-10-10 06:28] LABS: INR 1.08 (0.77-1.02)
[2017-10-10 06:37] LABS: EGFR Non-African American 51.8 (>60)
[2017-10-10] MEDS ORDERED: cefTRIAXone(*) 1 GM in NS 0.9% 50 ML* 50 ML IVPB SCH (09:00)
[2017-10-10] MEDS ORDERED: Metoprolol Succinate XL TAB* 25 MG PO SCH (09:00)
[2017-10-10] MEDS ORDERED: Lisinopril TAB* 10 MG PO SCH (09:00)
--- NOTE | 2017-10-10 09:02 | PN ---
Subjective Date of Service: 10/10/17 Interval History: Mrs. Wei is feeling much better today. Cough has improved, denies chest pain or SOB. Her oxygen sats has been stable on room air. Denies fever or chills. Tolerating regular diet, no nausea or vomiting. She expressed desire to go home today. She has no complaints. Urine antigens negative. Sputum and blood cultures pending. Family History: Unchanged from Admission Social History: Unchanged from Admission Past Medical History: Unchanged from Admission Objective Active Medications: Acetaminophen (Tylenol Tab*) 650 mg PO Q4H PRN PRN Reason: FEVER/PAIN Last Admin: 10/10/17 03:23 Dose: 650 mg Albuterol (Ventolin 2.5 Mg/3 Ml Neb.Hnah*) 2.5 mg INH Q2H PRN PRN Reason: SOB/WHEEZING Aspirin (Aspirin 81 Mg Chew Tab*) 81 mg PO DAILY [facility] Last Admin: 10/09/17 14:27 Dose: 81 mg Heparin Sodium (Porcine) (Heparin Vial(*)) 5,000 units SUBCUT Q8HR [facility] Last Admin: 10/10/17 05:30 Dose: 5,000 units Ceftriaxone Sodium 1 gm/ (Sodium Chloride) 50 mls @ 200 mls/hr IVPB Q24H [facility] Azithromycin 500 mg/ Sodium (Chloride) 250 mls @ 250 mls/hr IVPB Q24H [facility] Lisinopril (Prinivil Tab*) 20 mg PO QAM [facility] Metoprolol Succinate (Toprol Xl Tab*) 25 mg PO QAM [facility] Vital Signs - 8 hr 10/10/17 10/10/17 03:28 07:27 Temperature 98.0 F 98.2 F Pulse Rate 70 68 Respiratory 20 18 Rate Blood Pressure 150/61 148/54 (mmHg) O2 Sat by Pulse 100 95 Oximetry Oxygen Devices in Use Now: None Appearance: Healthy appearing elderly female, comfortable and in NAD Eyes: No Scleral Icterus, PERRLA Ears/Nose/Mouth/Throat: Clear Oropharnyx, Mucous Membranes Moist Neck: NL Appearance and Movements; NL JVP, Trachea Midline Respiratory: Symmetrical Chest Expansion and Respiratory Effort, Clear to Auscultation Cardiovascular: NL Sounds; No Murmurs; No JVD, RRR Abdominal: NL Sounds; No Tenderness; No Distention Extremities: No Edema Skin: No Rash or Ulcers Neurological: Alert and Oriented x 3 Nutrition: Taking PO's Result Diagrams: 10/10/17 06:15 10/10/17 06:15 Additional Lab and Data: . Microbiology and Other Data: Microbiology 10/09/17 17:25 Legionella Urinary Antigen - Final Urine Negative Legionella Antigen Streptococcus pneumoniae Ag Screen - Final Negative S. pneumo Antigen Diagnostic Imaging: Patient Name: KAYODE WEI Medical Record#: [id number] Ordering Physician: Félix Roberson MD Acct.#: [id number] : 1930 Age: 87 Sex: F Location: EMERGENCY DEPARTMENT Exam Date: 10/09/17 1058 ADM Status: REG ER Order Information: CTA CHEST Accession Number: [id number] CPT: 46502 INDICATION: Chest pain. Short of breath. Evaluate for pulmonary embolus. COMPARISON: Chest x-ray same date IMPRESSION: 1. No CT evidence of acute pulmonary embolic disease 2. Right middle and upper lobe infiltrate with consolidation consistent with acute pneumonitis. Suggest follow-up. 3. Underlying emphysema. 4. Large hiatal hernia <Electronically signed by Jerson Dubon MD in OV> 10/09/17 1150 TTE with the following conclusions: The left ventricular chamber size is normal. Mild to moderate concentric left ventricular hypertrophy is observed. Global left ventricular wall motion and contractility are within normal limits. The left ventricle appears hyperdynamic. The estimated ejection fraction is greater than 70% The left atrium is moderately dilated. The right ventricular chamber size and systolic function are within normal limits. There is evidence of mild pulmonary hypertension. There is mild tricuspid regurgitation. EKG Data: EKG INTERPRETATION ECG Report Patient Name KAYODE WEI Birthdate 1930 Sex F Order Number [id number] Date of ECG 10/09/2017 08:56:59 Interpretation Sinus rhythm.normal P axis, V-rate 60- 99 Atrial premature complex.SV complex w/ short R-R interval Left anterior fascicular block.axis(240,-40), init forces inf Minimal ST depression, lateral leads.ST <-0.04mV, I aVL V5 V6 - ABNORMAL ECG - ECG NEEDS E-SIGNING Assess/Plan/Problems-Billing Assessment: An 87 y/o female with PMH of HTN, TIA, arthritis and CKD, who presented to ED yesterday with worsening cough and shortness of breath, found to have right middle and lower lobe pneumonia. - Patient Problems (1) Community acquired pneumonia Current Visit: Yes Status: Acute Comment: - Continue Ceftrixone and Azithromycin per protocol - Sputum and blood cultures pending - No docoumented fever - Good O2 sats on room air (2) Hypertension Current Visit: Yes Status: Acute Comment: - Continue metoprolol - Added her home Lisinopril starting this morning, HCTZ on hold (3) Hx of transient ischemic attack (TIA) Current Visit: Yes Status: Acute Comment: - Continue 81mg ASA (4) Arthritis Current Visit: Yes Status: Acute Comment: - Tylenol as needed for pain - Stable and ambulatory, no complaints today (5) ST segment changes on electrocardiogram Current Visit: Yes Status: Acute Comment: - Minimal ST-depressions likely secondary to demand ischemia - No complaints of chest pain - Troponin intially elevated, but now trending down - Repeated EKG with no siginificant ST changes (6) Chronic kidney disease Current Visit: Yes Status: Acute Comment: - Appears to be at baseline (7) DVT prophylaxis Current Visit: Yes Status: Acute Comment: - SQ Heparin (8) DNR (do not resuscitate) Current Visit: Yes Status: Acute Status and Disposition: Observation patient for treatment of CAP. Anticipate discharge to home in AM
[2017-10-10] MEDS: Aspirin 81 mg CHEW TAB* 81 MG TAB.CHEW PO SCH (09:29)
[2017-10-10] MEDS ORDERED: Azithromycin IV(*) 500 MG in NS 0.9% 250 ML* 250 ML IVPB SCH (10:00)
[2017-10-11] MEDS: Heparin VIAL(*) 5000 UNITS/ML VIAL (FIVE THOUSAND) SUBCUT SCH (05:29)
[2017-10-11 08:28] VITALS: BP 134/64
--- NOTE | 2017-10-12 00:11 | DS ---
CC: Dr. Apolinar Gamble * DISCHARGE SUMMARY: DATE OF ADMISSION: 10/09/17 DATE OF DISCHARGE: 10/11/17 PATIENT OF ADMITTING HOSPITALIST: Dr. Petra López. ATTENDING HOSPITALIST: Dr. Yuri Esquivel.* (DICTATED BY KAVITA SALAZAR) PRIMARY CARE PHYSICIAN: Dr. Apolinar Gamble. ADMISSION DIAGNOSES: 1. Worsening cough and shortness of breath. 2. Chills. 3. Hypertension. 4. Arthritis. 5. History of hiatal hernia. 6. History of transient ischemic attack. DISCHARGE DIAGNOSES: 1. Pneumonia. 2. Shortness of breath. 3. Cough and chills. 4. Hypertension. 5. Arthritis. 6. Hiatal hernia. 7. History of transient ischemic attack. CONSULTATIONS: None. HISTORY OF PRESENT ILLNESS: Mrs. Molina is an 87-year-old female with past medical history significant for hypertension, osteoarthritis, history of TIA, and hiatal hernia for which she underwent repair in the past who presented to the emergency room on 10/09/17 with complaints of progressive worsening shortness of breath. The patient said that she has not been feeling very well for a few days prior to her presentation. She felt what appears to be like cold symptoms with some congestion and cough that became productive that day. She woke up in the morning of and felt very fatigued, tired, could not get out of bed easily. She felt some chills as well and tactile fever, but she never really took her temperature. She spoke to her son and was convinced to come to the ED for further evaluation. She had laboratory workup that revealed slightly elevated white count of 13,600. She had a low-grade fever in the ED as well with temperature of 100.1. Laboratory workup otherwise was essentially negative. Her chest x-ray showed some development of a 2.3 cm nodule on the right perihilar lung. She had a CT of the chest that showed emphysema, hiatal hernia, possible infiltrate in the right middle lobe. Given her ongoing symptoms and the finding of the CT scan, the patient was admitted under hospitalist service for treatment of community-acquired pneumonia. HOSPITAL COURSE: The patient was admitted to the medical floor and she started on IV antibiotics using azithromycin and ceftriaxone per protocol. She also had oxygen therapy as needed; however, she was able to maintain good oxygen saturation at room air. She was ambulatory out of bed and she felt significant improvement after a dose of ciprofloxacin in the emergency room. She was seen earlier on the next day where she felt extremely well and denied any recurrent fever or shortness of breath. She expressed desire to go home, however, given her advanced age and the findings on the CT scan, we discussed with her staying another day for IV antibiotic prior to discharge to home. Repeated laboratory workup revealed resolution of her leukocytosis and she had stable hemoglobin and hematocrit. Her chemistry panel also showed elevated troponin that was thought to be likely due to demand ischemia, and her third draw of troponin shows a trend down. The patient had no complaints of chest pain or shortness of breath. She continued to improve clinically on a daily basis and on discharge morning, her exam was essentially unremarkable. Her vitals were stable and her maximum temperature during her hospitalization was 99.7 and it was 98.1 on today's discharge date. Her lungs were clear to auscultation bilaterally. Her heart was regular rate and rhythm without rubs, murmurs, or gallops. Her abdomen was soft, nontender, and nondistended. The patient will be discharged to home later today and will follow up with her primary care physician next week. DISCHARGE MEDICATIONS: Include: 1. Albuterol inhaler 18 g 2 puffs 4 times daily as needed for wheezing. 2. Vitamin D3 5000 units p.o. daily. 3. Hydrochlorothiazide 12.5 mg p.o. daily. 4. Lisinopril 20 mg p.o. daily. 5. Menthol pain relieving patch 5% topical as prescribed. 6. Metoprolol at 25 mg p.o. daily. 7. Multivitamin 1 tablet p.o. daily. 8. Aspirin 81 mg p.o. daily. 9. Azithromycin 250 mg p.o. daily x5 days. 10. Ceftin 500 mg p.o. b.i.d. x5 days. DISPOSITION: Discharged to home in a stable condition. TIME SPENT: I spent approximately 45 minutes discharging this patient with greater than 50% on discussing discharge instructions and medications. KAVITA SALAZAR [id number]/[facility] #: [id number] [facility] WESTCHESTERJudy
== END 2017-10-11 10:56 | disposition home or self-care (01) | DRG 194 ==
LOC: ED 08:33 → MED 12:26
PROVIDERS: ADMIT Internal Medicine; ATTEND Internal Medicine
DX: J18.9 Pneumonia, unspecified organism (principal); N17.9 Acute kidney failure, unspecified; I12.9 Hypertensive chronic kidney disease with stage 1 through stage 4 chronic kidney disease, or unspecified chronic kidney disease; N18.9 Chronic kidney disease, unspecified; M19.90 Unspecified osteoarthritis, unspecified site; K44.9 Diaphragmatic hernia without obstruction or gangrene; E86.0 Dehydration; Z66 Do not resuscitate; Z86.73 Personal history of transient ischemic attack (TIA), and cerebral infarction without residual deficits; Z79.899 Other long term (current) drug therapy; Z88.6 Allergy status to analgesic agent; Z82.49 Family history of ischemic heart disease and other diseases of the circulatory system; Z80.0 Family history of malignant neoplasm of digestive organs; Z82.3 Family history of stroke; Z87.891 Personal history of nicotine dependence
CPT/HCPCS: 36415; 71046; 71275; 80048; 80053; 82570; 83605; 83880; 84300; 84484; 85025; 85610; 86140; 87040; 87899; 93005; 93306; 99284; A9270-GY; G8978-GP-CI; G8979-GP-CI; G8980-GP-CI; J0456; J0696; J1644; Q9967

== ENCOUNTER 2017-12-29 10:08 | Emergency (ER) | payer MEDICARE, BC ==
--- OUTSIDE RECORDS SUMMARY | 2017-12-29 10:14 | XMS REPORT ---
:1930 External Reference #:[id number] Author Organization [employer] Address [address] [facility] [address] [place] [address] [place] [address] Phone [phone] Care Team Providers Name Role Phone Apolinar Gamble MD Primary Care Physician Unavailable Payers Type Date Identification Numbers Payment Provider Subscriber Medicare Primary Effective: Policy Number: Medicare Farheen E Tracy 1995 [id number] PayID: [id number] [address] [place] [address] [facility] Part B Effective: 2012 Policy Number: BS Facets Farheen Camacho Tracy [id number] PayID: [id number] [address] [address] [place] [address] Advance Directives Type Date Description Status Comment Other Directive 03/16/2017 Health Care Proxy Current and Verified Problems Date Description Provider Status Onset: 03/16/2017 Essential hypertension Adrianne Bernard NP Active Onset: 03/16/2017 Hyperlipidemia Adrianne Bernard NP Active Onset: 03/16/2017 Vitamin B deficiency Adrianne Bernard NP Active Onset: 03/16/2017 Hiatal hernia Adrianne Bernard NP Active Note: 2 operations Onset: 03/16/2017 Cholelithiasis without obstruction Adrianne Bernard NP Active Onset: 03/16/2017 H/O: TIA Adrianne Bernard NP Active Family History Date Family Member(s) Problem(s) Comments General Stroke General Cancer Onset: (age 88 Years) Father [place] Father due to Stroke () : (age 102 Years) Mother due to Natural Causes Siblings 1 Social History Type Date Description Comments Marital Status Lives With Alone 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 Pt still drives Allergies, Adverse Reactions, Alerts Date Description Reaction Status Severity Comments 03/15/2012 No Known Drug Allergy active Medications Medication Date Status Form Strength Qnty SIG Indications Ordering Provider Lisinopril 11/26 Active Tablets 20mg 90tab 1 by mouth s every day Thompson Gamble M.D.,FACP Shingrix 11/26 Active Suspension 50mcg 2unit 0.5 Rec s milliliter bryan Goodrich M.D.,FACP intramuscu lar now and 2-3 months later repeat Ventolin HFA 10/05 Active Aerosol 108(90Bas 8gm 2 puffs po J44.9 e) qid prn Pachikara mcg/Act Analia Vitamin D3 Active Capsules 5000Unit 8caps 1 by mouth Unknown Maximum Strength /0000 every day Salonpas Gel Active Patches 0.025-1.2 prn Unknown 5% Atorvastatin Active Tablets 10mg 30tab 1 by mouth Apolinar Calcium / s serge Gamble thu-thu- Analia,FACP i Metoprolol Active Tablets ER 25mg 90tab take 1 Apolinar Succinate ER /0000 24HR s tablet by carolina Goodrich M.D.,FACP every day Hydrochlorothiazi Active Tablets 12.5mg 90tab take 1 Apolinar de s tablet by carolina Goodrich M.D.,FACP every day Multivitamin Active Tablets 1 by mouth Unknown Adult /0000 every day Azithromycin 10/11 Hx Tablets 250mg 2 tabs by mouth on - day 1; 1 10/16 tab by mouth every day on days 2-5 Cefuroxime Axetil 10/11 Hx Tablets 500mg 1 by mouth twice a - day for 5 Anoro Ellipta 10/08 Hx Aerosol 62.5-25mc 60uni ( Not J44.9 g/Inh ts Using) 1 Bernard, - inhalation HEDIS ABSTRACTOR 10/19 Neurontin 06/02 Hx Capsules 100mg 40cap 1 po qhs bryan Lawrence, - M.DZia 11/08 Lisinopril Hx Tablets 40mg 45tab 1/2 by Apolinar /0000 s mouth DZia Gamble, - every day M.D.,FACP 11/26 Aspirin Hx Tablets 81mg 1 by mouth Unknown / every day - 12/23 Tramadol HCL Hx Tablets 50mg 50tab four times Unknown /0000 s a day as - needed 10/15 Ventolin HFA Hx Aerosol 108(90Bas 2 puffs po J44.9 Unknown /0000 e) mcg/ac qid prn - 10/[address] 20mg qd Unknown /0000 - 10/15 Vitamin B12 Hx Tablets ER 1000mcg qd Unknown /0000 - 10/15 Azithromycin Hx Tablets 250mg Take 1 Unknown /0000 Tablet By - Mouth 10/19 Cefuroxime Axetil Hx Tablets 500mg Take 1 Unknown /0000 Tablet By - Mouth Two 10/19 Daily Medications Administered in Office Medication Date Status Form Strength Qnty SIG Indications Ordering Provider Inj, Administered Injection Edgar Regshabanaoslawrence, 013 Stefek, 0.1 MG M.D., FACC, FSCAI Technetium TC Administered Injection Edgar 99M 013 Flora, TetrofosminAnalia, FACC, Per Unit Dose FSCAI Up To 40 Millicuries Synvisc Or Administered Injection Jd Synvisc-One 012 Howard, Injection 1 MG M.D. Synvisc Or Administered Injection Jd Synvisc-One 012 Howard, Injection 1 MG M.D. Synvisc Or Administered Injection Jd Synvisc-One 012 Howard, Injection 1 MG M.D. Immunizations CPT Code Status Date Vaccine Lot # [id number] Given 11/26/2017 Pneumococcal Conjugate Vaccine 13 Valent For [id number] Intramuscular Use [id number] Given 11/12/2016 Pneumonia Vaccine [id number] Vital Signs Date Vital Result Comment 12/23/2017 Height 58.5 inches 4'10.50" Weight 140.25 lb Heart Rate 80 /min BP Systolic 110 mmHg BP Diastolic 80 mmHg Body Temperature 98.1 F O2 % BldC Oximetry 92 % BMI (Body Mass Index) 28.8 kg/m2 11/26/2017 Height 58.5 inches 4'10.50" Weight 141.00 lb Heart Rate 82 /min BP Systolic Sitting 130 mmHg BP Diastolic Sitting 74 mmHg Body Temperature 97.7 F O2 % BldC Oximetry 98 % BMI (Body Mass Index) 29.0 kg/m2 10/19/2017 Weight 144.25 lb Heart Rate 71 /min BP Systolic 132 mmHg BP Diastolic 70 mmHg O2 % BldC Oximetry 95 % 03/16/2017 Weight 140.00 lb Heart Rate 76 /min BP Systolic Sitting 128 mmHg BP Diastolic Sitting 70 mmHg Body Temperature 98.0 F O2 % BldC Oximetry 97 % 11/12/2016 Weight 137.38 lb Heart Rate 65 /min BP Systolic Sitting 114 mmHg BP Diastolic Sitting 76 mmHg Body Temperature 97.6 F O2 % BldC Oximetry 91 % 10/08/2016 Height 58 inches 4'10" Weight 139.25 lb Heart Rate 57 /min BP Systolic Sitting 144 mmHg BP Diastolic Sitting 80 mmHg Body Temperature 97.6 F O2 % BldC Oximetry 95 % BMI (Body Mass Index) 29.1 kg/m2 06/14/2014 Height 57 inches 4'9" Weight 132.00 lb Heart Rate 72 /min BP Systolic Sitting 146 mmHg BP Diastolic Sitting 85 mmHg Pain Level 5 BMI (Body Mass Index) 28.6 kg/m2 11/25/2013 Height 59 inches 4'11" Weight 145.00 lb Heart Rate 62 /min BP Systolic Sitting 124 mmHg BP Diastolic Sitting 78 mmHg Pain Level 5 R lower back BMI (Body Mass Index) 29.3 kg/m2 11/09/2013 Height 59 inches 4'11" Weight 146.00 lb Heart Rate 84 /min 100 BP Systolic Sitting 128 mmHg left arm, reg cuff BP Diastolic Sitting 66 mmHg left arm, reg cuff BP Systolic Standing 116 mmHg left arm, reg cuff BP Diastolic Standing 64 mmHg left arm, reg cuff Respiratory Rate 20 /min BMI (Body Mass Index) 29.5 kg/m2 Results Test Date Test Result H/L Range Note Laboratory test finding 12/17/2017 Lactic Acid 1.4 mmol/L 0.5-2.0 1 Troponin-I (TnI) 0.04 ng/mL High <0.04 2 Rapid Influenza A & B 12/17/2017 Influenza A Molecular NEGATIVE Negative 3 Molecular Influenza B Molecular NEGATIVE Negative Inr/Protime 12/17/2017 Inr 0.89 0.77-1.02 Laboratory test finding 12/17/2017 Partial Thrombo Time 28.7 seconds 26.0 -36.3 PTT B-Type Natriuretic Peptide BNP 260 pg/mL High 4 Lactic Acid 1.3 mmol/L 0.5-2.0 5 Comp Metabolic Panel 12/17/2017 Sodium 137 mmol/L 135-145 Potassium 3.7 mmol/L 3.5-5.0 Chloride 101 mmol/L 101-111 Co2 Carbon Dioxide 27 mmol/L 22-32 Anion Gap 9 mmol/L 2-11 Glucose 127 mg/dL High 70-100 Blood Urea Nitrogen 29 mg/dL High 6-24 Creatinine 1.10 mg/dL High 0.51-0.95 BUN/Creatinine Ratio 26.4 High 8-20 Calcium 9.8 mg/dL 8.6-10.3 Total Protein 7.5 g/dL 6.4-8.9 Albumin 4.0 g/dL 3.2-5.2 Globulin 3.5 g/dL 2-4 Albumin/Globulin Ratio 1.1 1-3 Total Bilirubin 0.70 mg/dL 0.2-1.0 Alkaline Phosphatase 53 U/L 34-104 Alt 9 U/L 7-52 Ast 13 U/L 13-39 Egfr Non- 47.0 >60 Egfr 56.9 >60 6 Laboratory test finding 12/17/2017 C Reactive Protein 5.72 mg/L <8.01 Troponin-I (TnI) 0.04 ng/mL High <0.04 7 CBC Auto Diff 12/17/2017 White Blood Count 14.3 10^3/uL High 3.5-10.8 Red Blood Count 3.93 10^6/uL Low 4.00-5.40 Hemoglobin 12.7 g/dL 12.0-16.0 Hematocrit 37 % 35-47 Mean Corpuscular Volume 94 fL 80-97 Mean Corpuscular Hemoglobin 32 pg High 27-31 Mean Corpuscular HGB Conc 34 g/dL 31-36 Red Cell Distribution Width 14 % 10.5-15 Platelet Count 222 10^3/uL 150-450 Mean Platelet Volume 8.5 um3 7.4-10.4 Abs Neutrophils 13.1 10^3/uL High 1.5-7.7 Abs Lymphocytes 0.5 10^3/uL Low 1.0-4.8 Abs Monocytes 0.6 10^3/uL 0-0.8 Abs Eosinophils 0 10^3/uL 0-0.6 Abs Basophils 0 10^3/uL 0-0.2 Abs Nucleated RBC 0 10^3/uL Granulocyte % 91.5 % High 38-83 Lymphocyte % 3.7 % Low 25-47 Monocyte % 4.5 % 0-7 Eosinophil % 0.1 % 0-6 Basophil % 0.2 % 0-2 Nucleated Red Blood Cells % 0 Laboratory test finding 12/17/2017 Erythrocyte Sed Rate 41 mm/Hr High 0- 40 Urinalysis Profile 12/17/2017 Urine Color Yellow Urine Appearance Clear Urine Specific [place] 1.017 1.010-1.030 Urine pH 6.0 5-9 Urine Urobilinogen Negative Negative Urine Ketones Trace Negative Urine Protein Negative Negative Urine Leukocytes Negative Negative Urine Blood Negative Negative Urine Nitrite Negative Negative Urine Bilirubin Negative Negative Urine Glucose Negative Negative Laboratory test finding 12/17/2017 Rapid Influenza A B SEE RESULT BELOW 8 Antigen Blood Culture SEE RESULT BELOW 9 Laboratory test 10/19/2017 Calcium 9.5 mg/dL 8.6-10.3 finding Laboratory test 10/09/2017 Blood Culture SEE RESULT BELOW 10 finding CBC Auto Diff 10/09/2017 White Blood Count 13.6 10^3/uL High 3.5-10.8 Red Blood Count 4.16 10^6/uL 4.00-5.40 Hemoglobin 13.0 g/dL 12.0-16.0 Hematocrit 39 % 35-47 Mean Corpuscular Volume 94 fL 80-97 Mean Corpuscular Hemoglobin 31 pg 27-31 Mean Corpuscular HGB Conc 34 g/dL 31-36 Red Cell Distribution Width 13 % 10.5-15 Platelet Count 223 10^3/uL 150-450 Mean Platelet Volume 7.9 um3 7.4-10.4 Abs Neutrophils 12.5 10^3/uL High 1.5-7.7 Abs Lymphocytes 0.5 10^3/uL Low 1.0-4.8 Abs Monocytes 0.5 10^3/uL 0-0.8 Abs Eosinophils 0 10^3/uL 0-0.6 Abs Basophils 0.1 10^3/uL 0-0.2 Abs Nucleated RBC 0 10^3/uL Granulocyte % 92.1 % High 38-83 Lymphocyte % 3.7 % Low 25-47 Monocyte % 3.6 % 0-7 Eosinophil % 0.1 % 0-6 Basophil % 0.5 % 0-2 Nucleated Red Blood Cells % 0 Laboratory test finding 10/09/2017 C Reactive Protein 3.81 mg/L <8.01 Troponin-I (TnI) 0.02 ng/mL <0.04 Comp Metabolic Panel 10/09/2017 Sodium 139 mmol/L 135-145 Potassium 3.8 mmol/L 3.5-5.0 Chloride 102 mmol/L 101-111 Co2 Carbon Dioxide 28 mmol/L 22-32 Anion Gap 9 mmol/L 2-11 Glucose 145 mg/dL High 70-100 Blood Urea Nitrogen 29 mg/dL High 6-24 Creatinine 1.25 mg/dL High 0.51-0.95 BUN/Creatinine Ratio 23.2 High 8-20 Calcium 9.2 mg/dL 8.6-10.3 Total Protein 7.3 g/dL 6.4-8.9 Albumin 3.8 g/dL 3.2-5.2 Globulin 3.5 g/dL 2-4 Albumin/Globulin Ratio 1.1 1-3 Total Bilirubin 0.70 mg/dL 0.2-1.0 Alkaline Phosphatase 60 U/L 34-104 Alt 9 U/L 7-52 Ast 12 U/L Low 13-39 Egfr Non- 40.5 >60 Egfr 49.1 >60 11 Laboratory test finding 10/09/2017 Lactic Acid 1.5 mmol/L 0.5-2.0 12 B-Type Natriuretic Peptide BNP 142 pg/mL High 13 Inr/Protime 10/09/2017 Inr 0.90 0.77-1.02 Lipid Profile (Trig/Chol/HDL) 07/22/2017 Triglycerides 71 mg/dL 14 Cholesterol 167 mg/dL 15 HDL Cholesterol 69.7 mg/dL 16 LDL Cholesterol 83 mg/dL 17 Comp Metabolic Panel 07/22/2017 Sodium 138 mmol/L Low 139-145 Potassium 4.6 mmol/L 3.5-5.0 Chloride 101 mmol/L 101-111 Co2 Carbon Dioxide 31 mmol/L 22-32 Anion Gap 6 mmol/L 2-11 Glucose 93 mg/dL 70-100 Blood Urea Nitrogen 19 mg/dL 6-24 Creatinine 1.14 mg/dL High 0.51-0.95 BUN/Creatinine Ratio 16.7 8-20 Calcium 9.5 mg/dL 8.6-10.3 Total Protein 7.0 g/dL 6.4-8.9 Albumin 3.9 g/dL 3.2-5.2 Globulin 3.1 g/dL 2-4 Albumin/Globulin Ratio 1.3 1-3 Total Bilirubin 0.60 mg/dL 0.2-1.0 Alkaline Phosphatase 51 U/L 34-104 Alt 9 U/L 7-52 Ast 12 U/L Low 13-39 Egfr Non- 45.2 >60 Egfr 58.1 >60 18 Rapid Influenza A & B 04/19/2017 Influenza A Molecular NEGATIVE Negative 19 Molecular Influenza B Molecular NEGATIVE Negative 1 [facility] Severe Sepsis and Septic Shock Management Bundle Measure requires all lactic acids initially measuring >2.0 mmol/L be repeated. 2 Result TnIDx:0.04 Called to [id number] at: 15:17:26 by:[id number] Read back by: [id number] Mathematics Lecturer: [id number] 4 >100 to <200 pg/mL: likely compensated congestive heart failure (CHF) 200 to 400 pg/mL: likely moderate CHF >400 pg/mL: likely moderate to severe CHF 5 [facility] Severe Sepsis and Septic Shock Management Bundle Measure requires all lactic acids initially measuring >2.0 mmol/L be repeated. 6 Because ethnic data is not always readily available, this report includes an eGFR for both -Americans and non- Americans. The National Kidney Disease Education Program (NKDEP) does not endorse the use of the MDRD equation for patients that are not between the ages of 18 and 70, are , have extremes of body size, muscle mass, or nutritional status, or are non- or non-. According to the National Kidney Foundation, irrespective of diagnosis, the stage of the disease is based on the level of kidney function: Stage Description GFR(mL/min/1.73 m(2)) 1 Kidney damage with normal or decreased GFR 90 2 Kidney damage with mild decrease in GFR 60-89 3 Moderate decrease in GFR 30-59 4 Severe decrease in GFR 15-29 5 Kidney failure <15 (or dialysis) 7 Result TnIDx:0.04 Called to [id number] at: 12:22:13 by:[id number] Read back by: [id number] 8 SEE RESULT BELOW Name: FARHEEN WEI : [address]: Renetta Gallegos MD Acct: [id number] Unit: [id number] AGE: 87 Location: [place] [address]- Re12/17/17 SEX: F Status: ADM IN SPEC: [id number] MELCHOR: 12/17/[address] [facility] [address]: Maria Dolores Cardenas MD REQ: [id number] RECD: 12/17/17 STATUS: JALEEL SAHU DR: [facility] Apolinar Gamble MD _ SOURCE: [facility]: ORDERED: Flu A B Request Procedure Result Reported Site Rapid Influenza A B Request Final 12/17/17- 2305 ML Specimen received for Influenza A/B Molecular testing * ML - Main Lab . END OF REPORT DEPARTMENT OF PATHOLOGY, [address] [place] [address] Albert Choi M.D. Director [facility] # [id number] 9 SEE RESULT BELOW Name: FARHEEN WEI : [address]: Renetta Gallegos MD Acct: [id number] Unit: [id number] AGE: 87 Location: [place] [address]- Re12/17/17 Dis: 12/19/17 SEX: F Status: DIS IN SPEC: [id number] MELCHOR: 12/17/[address] [facility] [address]: Maria Dolores Cardenas MD REQ: [id number] RECD: 12/17/17 STATUS: JALEEL SAHU DR: [facility] Apolinar Gamble MD _ SOURCE: BLOOD,VENO SPDESC: ORDERED: Blood Cult Procedure Result Reported Site Aerobic Culture Bottle Final 12/22/171248 ML No Growth Day 5 Anaerobic Culture Bottle Final 12/22/171248 ML No Growth Day 5 * ML - Main Lab . END OF REPORT DEPARTMENT OF PATHOLOGY, [address] [place] [address] Albert Choi M.D. Director [facility] # [id number] 10 SEE RESULT BELOW Name: FARHEEN WEI : [address]: Petra Cazares MD Acct: [id number] Unit: [id number] AGE: 87 Location: [place] [address] Re10/09/17 Dis: 10/11/17 SEX: F Status: DIS IN SPEC: [id number] MELCHOR: 10/09/[address]: Félix Roberson MD REQ: [id number] RECD: 10/09/17 STATUS: JALEEL SAHU DR: Apolinar Gamble MD _ SOURCE: BLOOD,VENO SPDESC: ORDERED: Blood Cult Procedure Result Reported Site Aerobic Culture Bottle Final 10/14/17- 918 ML No Growth Day 5 Anaerobic Culture Bottle Final 10/14/17- 918 ML No Growth Day 5 * ML - Main Lab . END OF REPORT DEPARTMENT OF PATHOLOGY, [address] [place] [address] Albert Choi M.D. Director [facility] # [id number] 11 Because ethnic data is not always readily available, this report includes an eGFR for both -Americans and non- Americans. The National Kidney Disease Education Program (NKDEP) does not endorse the use of the MDRD equation for patients that are not between the ages of 18 and 70, are , have extremes of body size, muscle mass, or nutritional status, or are non- or non-. According to the National Kidney Foundation, irrespective of diagnosis, the stage of the disease is based on the level of kidney function: Stage Description GFR(mL/min/1.73 m(2)) 1 Kidney damage with normal or decreased GFR 90 2 Kidney damage with mild decrease in GFR 60-89 3 Moderate decrease in GFR 30-59 4 Severe decrease in GFR 15-29 5 Kidney failure <15 (or dialysis) 12 [facility] Severe Sepsis and Septic Shock Management Bundle Measure requires all lactic acids initially measuring >2.0 mmol/L be repeated. 13 >100 to <200 pg/mL: likely compensated congestive heart failure (CHF) 200 to 400 pg/mL: likely moderate CHF >400 pg/mL: likely moderate to severe CHF 14 Desirable: <150 Borderline High: 150-199 High: 200-499 Very High: >500 15 Desirable: <200 Borderline High: 200-239 High: >239 16 Low: <40 Desirable: 40-60 High: >60 17 Desirable: <100 Near Optimal: 100-129 Borderline High: 130-159 High: 160-189 Very High: >189 18 Because ethnic data is not always readily available, this report includes an eGFR for both -Americans and non- Americans. The National Kidney Disease Education Program (NKDEP) does not endorse the use of the MDRD equation for patients that are not between the ages of 18 and 70, are , have extremes of body size, muscle mass, or nutritional status, or are non- or non-. According to the National Kidney Foundation, irrespective of diagnosis, the stage of the disease is based on the level of kidney function: Stage Description GFR(mL/min/1.73 m(2)) 1 Kidney damage with normal or decreased GFR 90 2 Kidney damage with mild decrease in GFR 60-89 3 Moderate decrease in GFR 30-59 4 Severe decrease in GFR 15-29 5 Kidney failure <15 (or dialysis) 19 Mathematics Lecturer: [id number] Procedures Date CPT Code Description Status 10/09/2017 25666 ECHO Transthorasic Realtime 2D W Doppler & Color Flow Completed Hosp 03/01/2014 77239 EEG Recording Awake & Drowsy Completed 03/01/2014 40731 ECHO Transthorasic Realtime 2D W Doppler & Color Flow Completed Hosp 11/09/2013 15408 EKG Tracing & Interpretation Completed 04/15/2012 15307 IV Push, Initial Completed 04/15/2012 55332 Echocardiogram, Limited Study Completed 03/24/2012 77139 Color Flow Doppler/Interp & Reprt Completed 03/24/2012 23642 Pulse Wave/Continuous-Interp.RPT Completed 03/24/2012 76814 Echocardiography, Transesophageal, Real Time W/Image 2D Completed W/W/O M-M 03/23/2012 52028 Myocardial Perfusion Imaging Tomographic (Spect) Completed Multiple Studies 03/23/2012 73573 Stress Test Completed 03/11/2012 53818 ECHO Transthoracic, Real-Time 2D With Doppler And Color Completed Flow 01/07/2012 88975 Inject/Drain Joint/Bursa Major W/O US Completed 01/07/2012 Inject/Drain Joint/Bursa Major W/O US Completed 12/31/2011 Inject/Drain Joint/Bursa Major W/O US Completed 12/31/2011 Inject/Drain Joint/Bursa Major W/O US Completed 12/10/2011 37295 Xray Knee 3 Views Completed 12/10/2011 53566 Xray Knee 3 Views Completed 12/10/2011 90498 Rad Exam; Knee, Ap&L Completed 12/10/2011 77086 Rad Exam; Knee, Ap&L Completed 05/10/2002 Colonoscopy Completed Encounters Type Date Location Provider CPT E/M Dx Office Visit 10/19/2017 4:00p [facility] Internal Medicine Daina Hagen [address] J18[address] RPA-C E83.51 Office Visit 10/11/2017 10:58a [facility] KAVITA aVsquez 97534 J18.9 Assoc, Hospitalists I10 Office Visit 10/10/2017 10:57a [facility] KAVITA Vasquez 12473 J18.9 Assoc, Hospitalists I10 Office Visit 10/09/2017 10:56a [facility] Assoc, Rajan Kirk 13179 J18.9 Hospitalists N.P. I10 N17.9 Office Visit 03/16/2017 11:30a [facility] [place] [address] E78.5 Office Visit 11/12/2016 11:30a [facility] [place] [address] J44[address] - [address] Z23 Office Visit 10/08/2016 11:30a [facility] [place] [address] R06.[address] J44.9 Office Visit 06/14/2014 10:00a [facility] [address] 719.47 C.M.A. MLeigh Office Visit 03/01/2014 10:32a [facility] [place] [address] 435.9 Services Of [facility] 401.9 Office Visit 03/01/2014 7:43p [facility] Assoc, Renetta Gallegos 99103 435.9 Hospitalists MLeigh 401.9 530.81 Office Visit 02/28/2014 7:42p [facility], Rajan Kirk, 78489 435.9 Hospitalists N.P. 401.9 530.81 Office Visit 11/25/2013 2:00p [facility] Ulises Rice, 29296 721.3 Of [facility] M.D. Office Visit 11/09/2013 3:20p [facility] Edgar Hines M.D., 49287 427.0 [facility] AT [facility] 401.9 Office Visit 09/30/2012 11:15a [facility] Edgar Hines M.D., 26394 427.0 [facility] AT [facility] 401.9 Office Visit 06/17/2012 3:45p [facility], 33654 715.96 C.M.A. M.D. Office Visit 06/02/2012 9:45a [facility], 23476 727.51 C.M.A. M.DZia 715.96 Office Visit 04/01/2012 1:15p [facility] Hines M.D., 81307 427.0 [facility] Office Visit 03/15/2012 11:30a [facility] Edgar Hines M.D., 98109 427.0 [facility] AT [facility] 786.09 Office Visit 02/25/2012 10:45a [facility] 53941 715.96 C.M.A. M.D. Office Visit 01/14/2012 11:00a [facility] HEBERT Shafer 20130 715.96 C.M.A. Office Visit 12/10/2011 9:00a [facility], 43975 715.96 C.M.A. M.D. Plan of Care Future Appointment(s):01/25/2018 2:10 pm - Luz Johnson M.D. at [facility]02/08/2018 1:00 pm - Aditi Crawford MD at [facility]06/22/2018 11:20 am - Radhika Ureañ MD at [facility] Internal Medicine - [address]12/23/2017 - Radhika Ureña MDJ18.9 Pneumonia, unspecified [id number] Chronic obstructive pulmonary disease, unspecifiedComments:see lung specialistReferral:Aditi Crawford MD, Pulmonary [id number] Essential ( primary) hypertensionComments:Continue with your current medication.Follow up: HTN f/u 6 moI47.1 Supraventricular tachycardiaComments:See cardiologistReferral: Luz Johnson MD, Cardiovsclr Disease
[2017-12-29 10:15] VITALS: BP 105/61
--- NOTE | 2017-12-29 10:41 | UC ---
Abdominal Pain Female HPI - HPI Summary HPI Summary: Ms. Molina started working right lower quadrant sharp pain radiating to her labia on Thursday. It is intermittent in intensity but constantly present. It does hurt a little bit to walk. She is urinating normally and her bowels normally she denies any fever. She was just recently hospitalized for pneumonia and is no longer taking antibiotics. She feels fatigued. - History of Current Complaint Chief Complaint: UCAbdominalPain Stated Complaint: SIDE PAIN Time Seen by Provider: 12/29/17 10:19 Pain Intensity: 10 Allergies/Adverse Reactions: Allergies Allergy/AdvReac Type Severity Reaction Status Date / Time NSAIDS (Non-Steroidal Allergy Bleeding Verified 12/29/17 10:16 Anti-Inflamma PMH/Surg Hx/FS Hx/Imm Hx Previously Healthy: Yes Cardiovascular History: Cardiac Disease, Hypertension Neurological History: TIA - Surgical History Surgical History: Yes Surgery Procedure, Year, and Place: HYSTERECTOMY,. 2 HIATAL HERNIA OPERATIONS- [facility], [place]. BLADDER SCRAPING,. laparoscopy right knee- [facility]. CATARACTS - Family History Known Family History: Positive: Cardiac Disease Negative: Blood Disorder - Social History Alcohol Use: Occasionally Substance Use Type: None Smoking Status (MU): Former Smoker Type: Cigarettes Amount Used/How Often: 1 PACK PER WEEK Have You Smoked in the Last Year: No When Did the Patient Quit Smoking/Using Tobacco: 45 YEARS AGO - Immunization History Most Recent Influenza Vaccination: Never Most Recent Tetanus Shot: Unknown Most Recent Pneumonia Vaccination: 2018 Review of Systems Constitutional: Fatigue Skin: Negative ENT: Negative Respiratory: Negative Cardiovascular: Negative Gastrointestinal: Other - RLQ pain Genitourinary: Negative Motor: Negative Musculoskeletal: Negative Neurological: Negative Psychological: Negative All Other Systems Reviewed And Are Negative: Yes Physical Exam - Summary Physical Exam Summary: She is nontoxic in appearance and her vital signs are stable. She is cooperative to the exam and pleasant Triage Information Reviewed: Yes Appearance: Well-Appearing Vital Signs: Initial Vital Signs Temp 98.1 F 12/29/17 10:12 Pulse 83 12/29/17 10:12 Resp 16 12/29/17 10:12 BP 105/61 12/29/17 10:12 Pulse Ox 98 12/29/17 10:12 Vital Signs Reviewed: Yes ENT Exam: Normal Neck: Positive: Supple Respiratory: Positive: Lungs clear, Normal breath sounds Cardiovascular: Positive: RRR Abdomen Description: Positive: Other: - Mild RLQ tenderness Bowel Sounds: Positive: Present Musculoskeletal Exam: Normal Neurological Exam: Normal Psychological Exam: Normal Skin Exam: Normal Diagnostics - Radiology CT Abd/Pelvis Radiology Interpretation Completed By: Radiologist - Diverticulitis Abd Pain Female Course/Dx - Course Course Of Treatment: Ms. Molina remained stable here with normal vital signs. She was found on CT scan to have diverticulitis without evidence for abscess or perforation and I will treat her with antibiotics and recommend close follow-up with her PCP - Differential Dx/Diagnosis Provider Diagnoses: Diverticulitis Discharge - Sign-Out/Discharge Documenting (check all that apply): Patient Departure All imaging exams completed and their final reports reviewed: Yes - Discharge Plan Condition: Stable Disposition: HOME Referrals: Radhika Ureña MD [Primary Care Provider] - - Billing Disposition and Condition Condition: STABLE Disposition: Home
== END 2017-12-29 11:46 | disposition home or self-care (01) ==
LOC: UCEAST 10:08
DX: K57.92 Diverticulitis of intestine, part unspecified, without perforation or abscess without bleeding (principal); I10 Essential (primary) hypertension; Z88.6 Allergy status to analgesic agent; Z87.891 Personal history of nicotine dependence
CPT/HCPCS: 74176; 81003; 87086; 99212; G0463

== ENCOUNTER 2019-01-19 10:29 | Emergency (ER) | payer MEDICARE, BC ==
--- OUTSIDE RECORDS SUMMARY | 2019-01-19 10:42 | XMS REPORT | Continuity of Care Document ---
:1930 External Reference #:[id number] Author Name Radhika Ureña MD (transmitted by agent of provider Denise Alejo) Address [address], [place] [address] Care Team Providers Name Role Phone Radhika Ureña M.D. - Family Medicine Care Team Information Problems Active Problems Provider Date Essential hypertension Adrianne Bernard NP Onset: 03/16/2017 Hyperlipidemia Adrianne Bernard NP Onset: 03/16/2017 Vitamin B deficiency Adrianne Bernard NP Onset: 03/16/2017 Hiatal hernia Adrianne Bernard NP Onset: 03/16/2017 Note: 2 operations Cholelithiasis without obstruction Adrianne Bernard NP Onset: 03/16/2017 H/O: TIA Adrianne Bernard NP Onset: 03/16/2017 Mitral valve disorder Luz Johnson M.D. Onset: 03/01/2018 Paroxysmal supraventricular tachycardia Luz Johnson M.D. Onset: 01/25/2018 Social History Type Date Description Comments Sex Unknown Tobacco Use Start: Unknown End: Former Cigarette Smoker Unknown Smoking Status Reviewed: 11/29/18 Former Cigarette Smoker ETOH Use 11/26/2017 Rarely consumes alcohol Tobacco Use Start: Unknown End: Patient is a former quit a long time Unknown smoker ago Recreational Drug Use Denies Drug Use Exercise Type/Frequency Exercises regularly Housework. Limited by back, knee issues. Allergies, Adverse Reactions, Alerts Active Allergies Reaction Severity Comments Date Advil Bleeding stomach 02/08/2018 NSAIDs Bleeding stomach 02/08/2018 Inactive Allergies No Known Drug Allergy 03/15/2012 Medications Active Medications SIG Qnty Indications Ordering Date Provider Shingrix 0.5 milliliters 1units Z00.00 Radhikasabina Ureña, 50mcg/0.5ML Suspension intramuscular now 9 Rec and 1-2 months later repeat Lisinopril 1 by mouth every 90tabs Radhikasabina Ureña, 20mg Tablets day MD 8 Ventolin HFA 2 puffs by mouth 8gm J44.9 Radhika Ureña, 108(90Base) four times a day as 8 mcg/Act Aerosol needed Vitamin D3 4 cap by mouth 30caps Unknown 1000Unit Capsules every day 0 Salonpas Gel prn Unknown 0.025-1.25% 0 Patches Atorvastatin Calcium 1 by mouth every 36tabs Radhikasabina Ramsaye, 10mg mon-thu-thu MD 0 Tablets Metoprolol Succinate ER take 1 tablet by 90tabs Apolinar Mackay 25mg mouth every day [place], 0 Tablets ER 24HR M.DZia,FAC Hydrochlorothiazide take 1 tablet by 90tabs Radhika Ureña, 12.5mg mouth every day MD 0 Tablets Multivitamin Adult 1 by mouth every Unknown Tablets day 0 Probiotic 1 by mouth every Unknown Capsules day 0 Omeprazole 1 by mouth every Unknown 20mg Capsules DR day 0 Medications Administered in Office Medication SIG Qnty Indications Ordering Provider Date Inj, Regadenoson, 0.1 MG Edgar Hines M.D., [facility], 03/23/2012 Injection FSCAI Technetium TC 99M Edgar Hines M.D., [facility], 03/23/2012 Tetrofosmin, Per Unit Dose FSCAI Up To 40 Millicuries Injection Synvisc Or Synvisc-One Jd Lawrence M.D. 01/07/2012 Injection 1 MG Injection Synvisc Or Synvisc-One Jd Lawrence M.D. 01/07/2012 Injection 1 MG Injection Synvisc Or Synvisc-One Jd Lawrence M.D. 12/31/2011 Injection 1 MG Injection Immunizations CPT Code Status Date Vaccine Lot # [id number] Given 11/26/2017 Pneumococcal Conjugate Vaccine 13 Valent For [id number] Intramuscular Use 96008 Given 11/12/2016 Pneumonia Vaccine [id number] Vital Signs Date Vital Result Comment 11/29/2018 1:10pm Height 57 inches 4'9" Weight 129.38 lb Heart Rate 65 /min BP Systolic Sitting 120 mmHg Rue reg cuff BP Diastolic Sitting 68 mmHg Rue reg cuff O2 % BldC Oximetry 99 % BMI (Body Mass Index) 28.0 kg/m2 07/27/2018 1:21pm Height 57 inches 4'9" Weight 129.00 lb Heart Rate 59 /min BP Systolic Sitting 117 mmHg BP Diastolic Sitting 66 mmHg O2 % BldC Oximetry 96 % BMI (Body Mass Index) 27.9 kg/m2 Results Test Date Facility Test Result H/L Range Note Basic Metabolic 11/24/2018 [facility] Sodium 138 mmol/L Normal 135-145 1 [address] [place] [address] [phone] Potassium 4.1 mmol/L Normal 3.5-5.0 Chloride 101 mmol/L Normal 101-111 Co2 Carbon Dioxide 31 mmol/L Normal 22-32 Anion Gap 6 mmol/L Normal 2-11 Glucose 98 mg/dL Normal 70-100 Blood Urea Nitrogen 21 mg/dL Normal 6-24 Creatinine 1.12 mg/dL High 0.51-0.95 BUN/Creatinine Ratio 18.8 Normal 8-20 Calcium 9.3 mg/dL Normal 8.6-10.3 Egfr Non- 45.9 >60 Egfr 55.6 >60 2 Lipid Profile 07/20/2018 [facility] Triglycerides 81 mg/dL 3 (Trig/Chol/HDL) [address] [place] [address] [phone] Cholesterol 170 mg/dL 4 HDL Cholesterol 57.3 mg/dL 5 LDL Cholesterol 97 mg/dL 6 1 FASTING 2 Because ethnic data is not always readily [...] 15-29 5 Kidney failure <15 (or dialysis) 3 Desirable: <150 Borderline High: 150-199 High: 200-499 Very High: >500 4 Desirable: <200 Borderline High: 200-239 High: >239 5 Low: <40 Desirable: 40-60 High: >60 6 Desirable: <100 Near Optimal: 100-129 Borderline High: 130-159 High: 160-189 Very High: >189 Procedures Date Code Description Status 05/10/2002 44541589 Colonoscopy Completed Medical Devices Description No Information Available Encounters Type Date Location Provider Dx Diagnosis Office Visit 07/27/2018 [facility] Internal Radhika Ureña MD I10 Essential ( primary) 1:40p Medicine - [facility] hypertension R63.4 Abnormal weight loss K21.9 Gastro-esophageal reflux disease without esophagitis E78.5 Hyperlipidemia, unspecified Assessments Date Code Description Provider 11/29/2018 Z00.00 Encounter for general adult medical examination Radhika Ureña MD without abnormal findings 11/29/2018 K44.9 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 11/29/2018 I12.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, or unspecified chronic kidney disease 07/27/2018 I10 Essential (primary) hypertension Radhika Ureña MD 07/27/2018 R63.4 Abnormal weight loss Radhika Ureña MD 07/27/2018 K21.9 Gastro-esophageal reflux disease without Radhika Ureña MD esophagitis 07/27/2018 E78.5 Hyperlipidemia, unspecified Radhika Ureña MD Plan of Treatment Future Appointment(s):12/02/2019 11:00 am - Radhika Ureña MD at [facility] Internal Medicine [facility]11/29/2018 - Radhika Ureña MDZ00.00 Encounter for general adult medical examination without abnormal findingsNew Medication:Shingrix 50 mcg/ 0.5ML - 0.5 milliliters intramuscular now and 1-2 months later repeatComments: You are no longer due for colon/breast/cervical cancer screening.Your cholesterol profile and other labs were reviewed today and are normal. Your kidney function is stable.Remember to wear sunscreen and see your dentist regularly.For optimum health, I recommend some form of regular exercise and integrating a lot of plant-based foods into your daily diet.I recommend you take Calcium supplements, 500 -600 mg,with Vit D 400 iu, one tablet twice daily. We recommend everyone have a healthcare proxy and advanced medical directives on fileFollow up:Physical in 1 yearK44.9 Diaphragmatic hernia without obstruction or [id number] Hypertensive chronic kidney disease with stage 1 through stage 4 chronic kidney disease, or unspecified chronic kidney disease Functional Status Functional Condition Comment Date Status Independent with all ADL's Active Independent with all IADL's Active Mental Status Description No Information Available Referrals Description No Information Available
[2019-01-19 10:45] VITALS: BP 163/75
--- NOTE | 2019-01-19 11:45 | UC ---
Shoulder Pain HPI - HPI Summary HPI Summary: 88-year-old female presents with complaints of right shoulder pain for the last 3 days. Describes pain as a constant "gnawing" pain that begins at the base of the right neck and extends across the anterior and posterior shoulder. No aggravating or alleviating factors. Patient has had not taken any over-the- counter analgesics. Patient did try a lidocaine patch this morning with little relief in pain. States she has had pain like this in the past which her primary care provider has prescribed tramadol with good effect. Denies injury, fever, chills, chest pain, palpitations, shortness of breath, edema, diaphoresis , dizziness, lightheadedness, rash, weakness, numbness, or tingling of the arm, hand, or fingers, abdominal pain, nausea, or vomiting. - History of Current Complaint Chief Complaint: UCUpperExtremity Stated Complaint: SHOLDER PAIN Time Seen by Provider: 01/19/19 11:05 Hx Obtained From: Patient Pain Intensity: 9 - Allergies/Home Medications Allergies/Adverse Reactions: Allergies Allergy/AdvReac Type Severity Reaction Status Date / Time NSAIDS (Non-Steroidal Allergy Bleeding Verified 01/19/19 10:46 Anti-Inflamma PMH/Surg Hx/FS Hx/Imm Hx Endocrine History: Dyslipidemia Cardiovascular History: Hypertension, Other - PSVT GI/ History: Renal Disease - Surgical History Surgical History: Yes Surgery Procedure, Year, and Place: HYSTERECTOMY,. 2 HIATAL HERNIA OPERATIONS- [facility] [place], [place]. BLADDER SCRAPING,. laparoscopy right knee- [facility] [place]. CATARACTS - Family History Known Family History: Positive: Cardiac Disease Negative: Blood Disorder - Social History Alcohol Use: Rare Substance Use Type: None Smoking Status (MU): Former Smoker Type: Cigarettes Amount Used/How Often: 1 PACK PER WEEK Have You Smoked in the Last Year: No When Did the Patient Quit Smoking/Using Tobacco: 45 YEARS AGO - Immunization History Most Recent Influenza Vaccination: Never Most Recent Tetanus Shot: Unknown Most Recent Pneumonia Vaccination: 2018 Review of Systems All Other Systems Reviewed And Are Negative: Yes Constitutional: Negative: Fever, Chills Skin: Negative: Rash Respiratory: Negative: Shortness Of Breath Cardiovascular: Negative: Palpitations, Chest Pain Gastrointestinal: Negative: Abdominal Pain, Vomiting, Nausea Genitourinary: Positive: Negative Motor: Negative: Weakness Neurovascular: Negative: Decreased Sensation Musculoskeletal: Positive: Other: - See HPI. Negative: Decreased ROM, Edema Neurological: Positive: Negative Is Patient Immunocompromised?: No Physical Exam - Summary Physical Exam Summary: GENERAL APPEARANCE: Well developed, well nourished, alert and cooperative, and appears to be in no acute distress. NECK: Neck supple. No midline cervical tenderness of deformity. Full ROM. Tenderness with palpation at the base of the right neck and across the trapezius. No spasm noted. CARDIAC: Normal S1 and S2. No S3, S4 or murmurs. Rhythm is regular. There is no peripheral edema, cyanosis or pallor. Extremities are warm and well perfused. Capillary refill is less than 2 seconds. Peripheral pulses intact. LUNGS: Clear to auscultation without rales, rhonchi, wheezing or diminished breath sounds. ABDOMEN: Positive bowel sounds. Soft, nondistended, nontender. No guarding or rebound. No masses or hepatosplenomegally. MUSKULOSKELETAL: ROM intact to all extremities. No joint erythema or tenderness. Normal muscular development. Normal gait. BACK:No spinal deformity or tenderness or muscular spasm. SKIN: Skin normal color, texture and turgor with no lesions or eruptions. Triage Information Reviewed: Yes Vital Signs: Initial Vital Signs Temp 98 F 01/19/19 10:39 Pulse 78 01/19/19 10:39 Resp 16 01/19/19 10:39 BP 163/75 01/19/19 10:39 Pulse Ox 98 01/19/19 10:39 Vital Signs Reviewed: Yes Shoulder Course/Dx - Course Course Of Treatment: 88-year-old female presents with complaints of right shoulder pain for the last 3 days. Describes pain as a constant "gnawing" pain that begins at the base of the right neck and extends across the anterior and posterior shoulder. No aggravating or alleviating factors. Patient has had not taken any over-the- counter analgesics. Patient did try a lidocaine patch this morning with little relief in pain. States she has had pain like this in the past which her primary care provider has prescribed tramadol with good effect. Denies injury, fever, chills, chest pain, palpitations, shortness of breath, edema, diaphoresis , dizziness, lightheadedness, rash, weakness, numbness, or tingling of the arm, hand, or fingers, abdominal pain, nausea, or vomiting. Afebrile. Hypertensive otherwise vital signs stable. Oneam patient was noted to have a supple neck without midline cervical tenderness of deformity, full ROM, soft tissue tenderness with palpation at the base of the right neck and across the trapezius without spasm, and otherwise unremarkable exam. Discussed with patient that based on her history and physical that her pain appears to be muscular in origin although we did discuss that could not fully exclude other causes. Since patient reports that she has used tramadol in the past with good effect for similar pain I will give her a short-term prescription of tramadol 50 mg 1 tablet every 6 hours as needed for pain. The [facility] FINANCIAL DIRECTOR was consulted and it is safe to prescribe. (Reference #: [id number]) she is to follow-up with her primary care provider in 3-5 days if symptoms are not improving. Anticipatory guidance and warning symptoms require immediate evaluation the emergency room were reviewed with the patient. Verbalizes understanding and agrees with plan of care. - Differential Dx/Diagnosis Differential Diagnosis/HQI/PQRI: Arthritis, Rotator Cuff Injury, Sprain, Strain , Thoracic Outlet Syndrome, Other - cervical radiculopathy Provider Diagnosis: Acute pain of right shoulder Discharge ED - Sign-Out/Discharge Documenting (check all that apply): Patient Departure All imaging exams completed and their final reports reviewed: No Studies - Discharge Plan Condition: Stable Disposition: HOME Prescriptions: Tramadol HCl 50 mg PO Q6HR PRN #12 tablet MDD 4 PRN Reason: Pain - Moderate Patient Education Materials: Shoulder Pain (ED) Referrals: Radhika Ureña MD [Primary Care Provider] - 3 Days Additional Instructions: Rest the shoulder as much as possible. Apply a heating pad to the affected area for 15-20 minutes at least 4 times a day to help with the pain and relax the muscles. Take tramadol 50 mg 1 tablet every 6 hours as needed for pain. Follow up with your primary care provider in 3-5 days if symptoms do not improve. Seek immediate medical attention if you have severe pain not managed with pain medication, chest pain, feeling as if your heart is racing or skipping beats, shortness of breath, you break out in a cold sweat, have severe abdominal pain, persistent vomiting, develop weakness, numbness or tingling in the arm, hands, or fingers, or have any worsening of symptoms. - Billing Disposition and Condition Condition: STABLE Disposition: Home
== END 2019-01-19 12:05 | disposition home or self-care (01) ==
LOC: UCEAST 10:29
DX: M25.511 Pain in right shoulder (principal); I10 Essential (primary) hypertension; Z88.8 Allergy status to other drugs, medicaments and biological substances; Z87.891 Personal history of nicotine dependence
CPT/HCPCS: 99212; G0463

== ENCOUNTER 2019-04-10 11:28 | Emergency (ER) | payer MEDICARE, BC ==
--- OUTSIDE RECORDS SUMMARY | 2019-04-10 11:35 | XMS REPORT | Continuity of Care Document ---
:1930 External Reference #:[id number] Author Name Cary Barrientos M.D. (transmitted by agent of provider Samantha Noriega) Address [address] [place] [address] Care Team Providers Name Role Phone Radhika Ureña M.D. 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 Onset: 01/25/2018 Mitral valve disorder Luz Johnson M.D. Onset: 03/01/2018 Social History Type Date Description Comments Sex Unknown Tobacco Use Start: Unknown End: Former Cigarette Smoker Unknown Smoking Status Reviewed: 03/10/19 Former Cigarette Smoker ETOH Use 11/26/2017 Rarely [...] Date Provider Shingrix 0.5 milliliters 1units Z00.00 Lary 50mcg/0.5ML Suspension intramuscular now MD Vicente 9 Rec and 1-2 months later repeat Lisinopril 1 by mouth every 90tabs Radhika Ureña, 20mg Tablets day MD 8 Ventolin HFA 2 puffs by mouth 8gm J44.9 Radhikasabina Ureña, 108(90Base) four times a day as 8 mcg/Act Aerosol needed Vitamin D3 4 cap by mouth 30caps Unknown 1000Unit Capsules every day 0 Salonpas Gel prn Unknown 0.025-1.25% 0 Patches Atorvastatin Calcium 1 by mouth every 36tabs Iris Diana, 10mg mon-thu-thu M.D., FACP 0 Tablets Metoprolol Succinate ER take 1 tablet by 90tabs Irisjustine Ortiz, 25mg mouth every day M.D., FACP 0 Tablets ER 24HR Hydrochlorothiazide take 1 tablet by 90tabs Radhika Ramsaye, 12.5mg mouth every day MD 0 Tablets Multivitamin Adult 1 by mouth every Unknown Tablets day 0 Probiotic 1 by mouth every Unknown Capsules day 0 Omeprazole 1 by mouth every Unknown 20mg Capsules DR day 0 Medications Administered in Office Medication SIG Qnty Indications Ordering Provider Date Inj, Regadenoson, 0.1 MG Edgar Hines M.D., [facility], 03/23/2012 Injection FSCAI Technetium TC 99M Edgar Hines M.D., [facility], 03/23/2012 Tetrofosmin, Per Unit Dose FSCAI Up To 40 Millicuries Injection Synvisc Or Synvisc-One Jd Lawrence M.D. 01/07/2012 Injection 1 MG Injection Synvisc Or Synvisc-One Jd Lawrence M.D. 01/07/2012 Injection 1 MG Injection Synvisc Or Synvisc-One Jd Lawrence M.D. 12/31/2011 Injection 1 MG Injection Immunizations CPT Code Status Date Vaccine Lot # [id number] Given 11/26/2017 Pneumococcal Conjugate Vaccine 13 Valent For [id number] Intramuscular Use 33641 Given 11/12/2016 Pneumonia Vaccine [id number] Vital Signs Date Vital Result Comment 03/10/2019 10:12am Height 57 inches 4'9" Heart Rate 71 /min BP Systolic 120 mmHg BP Diastolic 80 mmHg Respiratory Rate 16 /min Body Temperature 97.8 F Pain Level 2 03/03/2019 3:25pm Height 57 inches 4'9" Weight 128.25 lb Heart Rate 72 /min BP Systolic 140 mmHg BP Diastolic 82 mmHg Respiratory Rate 18 /min Pain Level 2 O2 % BldC Oximetry 94 % BMI (Body Mass Index) 27.8 kg/m2 Results Test Acquired Date Facility Test Result H/L Range Note Basic Metabolic 11/24/2018 [facility] Sodium 138 mmol/L Normal 135-145 1 Panel [address] [place] [address] [phone] Potassium 4.1 mmol/L Normal 3.5-5.0 Chloride 101 mmol/L Normal 101-111 Co2 Carbon Dioxide 31 mmol/L Normal 22-32 Anion Gap 6 mmol/L Normal 2-11 Glucose 98 mg/dL Normal 70-100 Blood Urea Nitrogen 21 mg/dL Normal 6-24 Creatinine 1.12 mg/dL High 0.51-0.95 BUN/Creatinine Ratio 18.8 Normal 8-20 Calcium 9.3 mg/dL Normal 8.6-10.3 Egfr Non- 45.9 >60 Egfr 55.6 >60 2 1 FASTING 2 Because ethnic data is [...] 15-29 5 Kidney failure <15 (or dialysis) Procedures Date Code Description Status 03/03/2019 22211 Inject/Drain Joint/Bursa Major W/O US Completed 05/10/2002 14901256 Colonoscopy Completed Medical Devices Description No Information Available Encounters Type Date Location Provider Dx Diagnosis Office Visit 02/22/2019 [facility] Internal Lary Zhang M70.21 Olecranon 11:00a Medicine - [facility] bursitis, right elbow Assessments Date Code Description Provider 03/10/2019 M70.21 Olecranon bursitis, right elbow Cary Barrientos M.D. 03/03/2019 M70.21 Olecranon bursitis, right elbow Mimi Robison, RPA-C 02/22/2019 M70.21 Olecranon bursitis, right elbow Lary Zhang MD 11/29/2018 Z00.00 Encounter for general adult medical Radhika Ureña MD examination without abnormal findings 11/29/2018 K44.9 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 11/29/2018 I12.9 Hypertensive chronic kidney disease with Radhika Ureña MD stage 1 through stage 4 chronic kidney disease, or unspecified chronic kidney disease Plan of Treatment Future Appointment(s):12/02/2019 11:00 am - Radhika Ureña MD at [facility] Internal Medicine - [facility]03/10/2019 - Cary Barrientos M.D.M70.21 Olecranon bursitis, right elbowFollow up:Follow up: As needed Functional Status Functional Condition Comment Date Status Independent with all ADL's Active Independent with all IADL's Active Mental Status Description No Information Available Referrals Refer to Reason for Referral Status Appt Cray Gonzalez M.D. Sent 03/03/[address] [place] [address] [place] [address] [phone]
--- OUTSIDE RECORDS SUMMARY | 2019-04-10 11:35 | XMS REPORT | Continuity of Care Document ---
:1930 External Reference #:[id number] Author Name Lary Zhang MD (transmitted by agent of provider Denise Alejo) Address [address] [place] [address] Care Team Providers Name Role Phone Radhika Ureña M.D. - Family Medicine Care Team Information Regional Coordinator Problems Active Problems Provider Date Essential hypertension [...] Former Cigarette Smoker Unknown Smoking Status Reviewed: 02/22/19 Former Cigarette Smoker ETOH Use 11/26/2017 Rarely [...] Succinate ER take 1 tablet by 90tabs Iris Ortiz, 25mg mouth every day M.D., FACP [...] Inj, Regadenoson, 0.1 MG Edgar Hines M.D., [facility], 03/23/2012 Injection [facility] Technetium TC 99M Edgar Hines M.D., [facility], 03/23/2012 Tetrofosmin, Per Unit Dose FSCAI Up To 40 Millicuries Injection Synvisc Or Synvisc-One Jd Lawrence M.D. 01/07/2012 Injection 1 MG Injection Synvisc Or Synvisc-One Jd Lawrence M.D. 01/07/2012 Injection 1 MG Injection Synvisc Or Synvisc-One Jd Lawrence M.D. 12/31/2011 Injection 1 MG Injection Immunizations CPT Code Status Date Vaccine Lot # [id number] Given 11/26/2017 Pneumococcal Conjugate Vaccine 13 Valent For [id number] Intramuscular Use 40496 Given 11/12/2016 Pneumonia Vaccine [id number] Vital Signs Date Vital Result Comment 02/22/2019 11:05am Height 57 inches 4'9" Weight 127.00 lb Heart Rate 64 /min BP Systolic Sitting 141 mmHg BP Diastolic Sitting 68 mmHg BMI (Body Mass Index) 27.5 kg/m2 11/29/2018 1:10pm Height 57 inches 4'9" Weight 129.38 lb Heart Rate 65 /min BP Systolic Sitting 120 mmHg Rue reg cuff BP Diastolic Sitting 68 mmHg Rue reg cuff O2 % BldC Oximetry 99 % BMI (Body Mass Index) 28.0 kg/m2 Results Test Acquired Date Facility Test Result H/L Range Note Basic Metabolic 11/24/2018 [facility] Sodium 138 mmol/L Normal 135-145 1 Panel [address] [place] [address] [phone] Potassium 4.1 mmol/L Normal 3.5-5.0 Chloride 101 [...] (or dialysis) Procedures Date Code Description Status 05/10/2002 52359941 Colonoscopy Completed Medical Devices Description No Information Available Encounters Description No Information Available Assessments Date Code Description Provider 02/22/2019 M70.31 Other bursitis of elbow, right elbow Lary Zhang MD 11/29/2018 Z00.00 Encounter for general adult medical examination Radhika Ureña MD without abnormal findings 11/29/2018 K44.9 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 11/29/2018 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 Ureña MD 1 through stage 4 chronic kidney disease, or unspecified chronic kidney disease Plan of Treatment Future Appointment(s):12/02/2019 11:00 am - Radhika Ureña MD at [facility] [address] Internal Medicine - [facility]02/22/2019 - Lary Zhang MDM70.31 Other bursitis of elbow, right elbowReferral:Adriel Morton MD, Surgery,Orthopedic Functional Status Functional Condition Comment Date Status Independent with all ADL's Active Independent with all IADL's Active Mental Status Description No Information Available Referrals Refer to Reason for Referral Status Appt Date Adriel Morton MD Sent [address] [place] [id number] [phone]
--- OUTSIDE RECORDS SUMMARY | 2019-04-10 11:35 | XMS REPORT | Continuity of Care Document ---
:1930 External Reference #:[id number] Author Name HEBERT Langford (transmitted by agent of provider Renée Jordan) Address [address] [place] [id number] Care Team Providers Name Role Phone Radhika Ureña M.D. 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 01/07/2012 Injection 1 MG Injection Synvisc Or Synvisc-One Jd Lawrence M.D. 01/07/2012 Injection 1 MG Injection Synvisc Or Synvisc-One Jd Lawrence M.D. 12/31/2011 Injection 1 MG Injection Immunizations CPT Code Status Date Vaccine Lot # [id number] Given 11/26/2017 Pneumococcal Conjugate Vaccine 13 Valent For [id number] Intramuscular Use 51870 Given 11/12/2016 Pneumonia Vaccine [id number] Vital Signs Date Vital Result Comment 03/03/2019 3:25pm Height 57 inches 4'9" Weight 128.25 lb Heart Rate 72 /min BP Systolic 140 mmHg BP Diastolic 82 mmHg Respiratory Rate 18 /min Pain Level 2 O2 % BldC Oximetry 94 % BMI (Body Mass Index) 27.8 kg/m2 02/22/2019 11:05am Height 57 inches 4'9" Weight 127.00 lb Heart Rate 64 /min BP Systolic Sitting 141 mmHg BP Diastolic Sitting 68 mmHg BMI (Body Mass Index) 27.5 kg/m2 Results Test Acquired Date Facility Test Result H/L Range Note Basic Metabolic 11/24/2018 [facility] Sodium 138 mmol/L Normal 135-145 1 Panel [address] [place] [address] [phone] Potassium 4.1 mmol/L Normal 3.5-5.0 Chloride 101 [...] dialysis) Procedures Date Code Description Status 03/03/2019 10695 Inject/Drain Joint/Bursa Major W/O US Completed 05/10/2002 [id number] Colonoscopy Completed Medical Devices Description No Information Available Encounters Type Date Location Provider Dx Diagnosis Office Visit 02/22/2019 [facility] Internal Lary Zhang M70.21 Olecranon 11:00a Medicine - [facility] bursitis, right elbow Assessments Date Code Description Provider 03/03/2019 M70.21 Olecranon bursitis, right elbow ENEDELIA LangfordC 02/22/2019 M70.21 Olecranon bursitis, right elbow Lary Zhang MD 11/29/2018 Z00.00 Encounter for general adult medical Radhika Ureña MD examination without abnormal findings 11/29/2018 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 at [id number]/02/2019 11:00 am - Radhika Ureña MD at [facility] Internal Medicine - [facility]03/03/2019 - Mimi Robison RPA-[id number] Olecranon bursitis, right elbowFollow up:Follow up: 1 week Functional Status Functional Condition Comment Date Status Independent with all ADL's Active Independent with all IADL's Active Mental Status Description No Information Available Referrals Refer to Reason for Referral Status Appt Cary Gonzalez M.D. Sent 03/03/[address] [place] [address] [place] [address] [phone]
[2019-04-10 11:36] VITALS: BP 179/83
--- NOTE | 2019-04-10 12:41 | UC ---
Back Pain HPI - HPI Summary HPI Summary: started having upper left back pain 4 days ago, no known injury, heat helps pain, cannot take ibuprofen/aleve d/t "bleeding in past" today was serving breakfast and pain intensified, better after stopping activity - History of Current Complaint Chief Complaint: UCBackPain Stated Complaint: PAIN UNDER SHOULDER BLADE Time Seen by Provider: 04/10/19 12:10 Hx Obtained From: Patient Onset/Duration: Gradual Onset Timing: Intermittent Severity Initially: Moderate Severity Currently: Severe Pain Intensity: 9 Back Pain: Is Discrete @ - L upper back Character: Sharp, Throbbing Aggravating Factor(s): Movement, Lifting Alleviating Factor(s): Rest, Heat Associated Signs And Symptoms: Negative: Swelling, Redness, Bruising, Fever - Allergies/Home Medications Allergies/Adverse Reactions: Allergies Allergy/AdvReac Type Severity Reaction Status Date / Time NSAIDS (Non-Steroidal Allergy Bleeding Verified 01/19/19 10:46 Anti-Inflamma PMH/Surg Hx/FS Hx/Imm Hx Previously Healthy: Yes Endocrine History: Dyslipidemia Cardiovascular History: Hypertension - Surgical History Surgical History: Yes Surgery Procedure, Year, and Place: HYSTERECTOMY,. 2 HIATAL HERNIA OPERATIONS- [facility] [place] [place]. BLADDER SCRAPING,. laparoscopy right knee- [facility] [place]. CATARACTS - Family History Known Family History: Positive: Cardiac Disease Negative: Blood Disorder - Social History Occupation: Retired Lives: With Family Alcohol Use: Rare Substance Use Type: None Smoking Status (MU): Former Smoker Type: Cigarettes Amount Used/How Often: 1 PACK PER WEEK Have You Smoked in the Last Year: No When Did the Patient Quit Smoking/Using Tobacco: 45 YEARS AGO - Immunization History Most Recent Influenza Vaccination: Never Most Recent Tetanus Shot: Unknown Most Recent Pneumonia Vaccination: 2018 Review of Systems All Other Systems Reviewed And Are Negative: Yes Constitutional: Positive: Negative. Negative: Fever, Chills Skin: Positive: Negative. Negative: Rash Respiratory: Positive: Negative. Negative: Cough Cardiovascular: Positive: Negative Musculoskeletal: Positive: Negative Neurological/Mental Status: Positive: Negative Psychological: Positive: Negative Is Patient Immunocompromised?: No Physical Exam Triage Information Reviewed: Yes Appearance: Well-Appearing, No Pain Distress, Well-Nourished Vital Signs: Initial Vital Signs Temp 98.3 F 04/10/19 11:32 Pulse 63 04/10/19 11:32 Resp 16 04/10/19 11:32 BP 179/83 04/10/19 11:32 Pulse Ox 100 04/10/19 11:32 Vital Signs Reviewed: Yes Respiratory Exam: Normal Respiratory: Positive: Lungs clear Cardiovascular Exam: Normal Cardiovascular: Positive: RRR Musculoskeletal: Positive: Strength Intact, ROM Intact - c/o pain upper L back Neurological Exam: Normal Psychological Exam: Normal Skin: Negative: Rashes Back Pain Course/Dx - Differential Dx/Diagnosis Differential Diagnosis/HQI/PQRI: Fracture, Strain, Sprain, Other - pneumonia Provider Diagnosis: Muscle strain of left upper back Discharge ED - Sign-Out/Discharge Documenting (check all that apply): Patient Departure All imaging exams completed and their final reports reviewed: No Studies - Discharge Plan Condition: Good Disposition: HOME Prescriptions: Tramadol HCl 50 mg PO Q6HR PRN #12 tablet MDD 4 PRN Reason: Pain - Moderate Patient Education Materials: Thoracic Back Strain (ED) Referrals: Radhika Ureña MD [Primary Care Provider] - 2 Days (if not better) Additional Instructions: rest and use heat on area of pain use tramadol as prescribed for pain - Billing Disposition and Condition Condition: GOOD Disposition: Home
== END 2019-04-10 13:05 | disposition home or self-care (01) ==
LOC: UCEAST 11:28
DX: S29.012A Strain of muscle and tendon of back wall of thorax, initial encounter (principal); I10 Essential (primary) hypertension; Z87.891 Personal history of nicotine dependence; Z88.6 Allergy status to analgesic agent; X58.XXXA Exposure to other specified factors, initial encounter; Y92.9 Unspecified place or not applicable
CPT/HCPCS: 99212; G0463